=== PATIENT | male | born 1965 | race Caucasian/White ===

== ENCOUNTER → 2017-02-03 | Outpatient (CLI) | payer MEDICAID ==
--- NOTE | 2017-02-03 18:26 | RADIOLOGY REPORT (SQ) ---
EXAM DESCRIPTION: U/S NON-OB PELVIS LTD W/O DOP COMPLETED DATE/TIME: 02/03/2017 5:56 pm REASON FOR STUDY: Personal history of other diseases of the digestive system Z87.19 PERSONAL HISTOR Y OF OTHER DISEASES OF THE DIGESTIVE S COMPARISON: None. TECHNIQUE: Dynamic and static grayscale images acquired of the pelvis via transabdominal approach an d recorded on PACS. Additional selected color Doppler and spectral images recorded. LIMITATIONS: None. FINDINGS: Sonographic imaging of the area of concern suggests an inguinal hernia on the left. 0 1 c m right inguinal node is present. IMPRESSION: There appears to be a left inguinal hernia. TECHNICAL DOCUMENTATION: JOB ID: [id number] [employer]- All Rights Reserved
== END ==
LOC: RAD 17:10
PROVIDERS: ATTEND Family Medicine
DX: K44.9 Diaphragmatic hernia without obstruction or gangrene (principal); Z87.19 Personal history of other diseases of the digestive system
CPT/HCPCS: 76857

== ENCOUNTER 2017-03-12 08:19 | Inpatient (IN) | payer MEDICAID ==
[2017-03-12] MEDS ORDERED: NORMAL SALINE 1000 ML 1,000 ML IV ONE ×3 (08:50→20:00)
--- NOTE | 2017-03-12 08:55 | ER Document Report ---
ED Flu Like - General Chief Complaint: Flu Symptoms Stated Complaint: FLU LIKE SYMPTOMS Time Seen by Provider: 03/12/17 08:49 Mode of Arrival: Ambulatory Information source: Patient, Relative TRAVEL OUTSIDE OF THE [place] IN LAST 30 DAYS: No - HPI Patient complains to provider of: fever, decreased po intake, sob, cough Onset: Other - pt. with 1 week h/o productive cough, generalized arthralgias and myalgias, and decreased po intake. Had a brief episode of CP and has had SOB intemittently during the week - Related Data Allergies/Adverse Reactions: No Known Allergies Allergy (Unverified 03/01/17 13:21) Past Medical History - General Information source: Patient, Relative - Social History Smoking Status: Current Every Day Smoker Cigarette use (# per day): Yes Chew tobacco use (# tins/day): No Smoking Education Provided: Yes Family History: None - Past Medical History Cardiac Medical History: Denies: Hx Coronary Artery Disease, Hx Heart Attack, Hx Hypertension Pulmonary Medical History: Denies: Hx Asthma, Hx Bronchitis, Hx COPD, Hx Pneumonia Neurological Medical History: Denies: Hx Cerebrovascular Accident, Hx Seizures Musculoskeltal Medical History: Reports Hx Arthritis - KNEE L - Immunizations Hx Diphtheria, Pertussis, Tetanus Vaccination: Yes Review of Systems - Review of Systems Constitutional: See HPI, Chills, Fever EENT: No symptoms reported Cardiovascular: See HPI, Chest pain Respiratory: See HPI, Cough, Short of breath Gastrointestinal: No symptoms reported Genitourinary: No symptoms reported Musculoskeletal: Joint pain, Muscle pain -: Yes All other systems reviewed and negative Physical Exam - Vital signs Vitals: Temp Pulse Resp BP Pulse Ox 100.0 F 133 H 20 121/72 90 L 03/12/17 08:31 03/12/17 08:31 03/12/17 08:31 03/12/17 08:31 03/12/17 08:31 - General General appearance: Other - ill appearing In distress: Mild - HEENT Head: Normocephalic Ears: Normal Mouth/Lips: Normal Mucous membranes: Dry Pharynx: Normal Neck: Normal - Respiratory Respiratory status: No respiratory distress Chest status: Nontender Breath sounds: Rhonchi Chest palpation: Normal - Cardiovascular Rhythm: Tachycardia Heart sounds: Normal auscultation - Abdominal Inspection: Normal Tenderness: Nontender - Extremities General upper extremity: Normal inspection General lower extremity: Normal inspection Course - Re-evaluation Re-evalutation: 03/12/17 10:38 pt. feels somewhat better on bipap -- 02 sats now 94% -- will call hospitalist for admission - Vital Signs Vital signs: Temp Pulse Resp BP Pulse Ox 100.0 F 133 H 27 H 135/74 H 90 L 03/12/17 08:31 03/12/17 08:31 03/12/17 10:00 03/12/17 09:01 03/12/17 10:00 - Laboratory Result Diagrams: 03/12/17 08:00 03/12/17 08:00 Laboratory results interpreted by me: 03/12/17 03/12/17 08:00 08:00 Sodium 122.7 L Chloride 87 L BUN 44 H Creatinine 1.51 H Est GFR (Non-Af Amer) 49 L Glucose 145 H Lactic Acid 2.4 H Direct Bilirubin 0.5 H AST 185 H Alkaline Phosphatase 136 H - Diagnostic Test Radiology reviewed: Reports reviewed - bilateral opacities - Consults aleta cornell Time consulted: 10:39 - he will admit pt. Consulted provider: will come to ER Critical Care Note - Critical Care Note Total time excluding time spent on procedures (mins): 30 Discharge - Discharge Clinical Impression: Pneumonia Qualifiers: Pneumonia type: due to unspecified organism Laterality: bilateral Lung location : unspecified part of lung Qualified Code(s): J18.9 - Pneumonia, unspecified organism Sepsis Qualifiers: Sepsis type: sepsis due to unspecified organism Qualified Code(s): A41.9 - Sepsis, unspecified organism Condition: Fair Disposition: ADMITTED OBSERVATION Admitting Provider: Hospitalist Unit Admitted: Medical Floor Referrals: CHRISTIANA DALEY MD [Primary Care Provider] - Follow up as needed
[2017-03-12] MEDS ORDERED: LORAZEPAM INJ 2 MG/1 ML VIAL IV ONE ×2 (09:18→16:59)
[2017-03-12 09:26] LABS: INTERNATIONAL RATION (INR) 0.92
[2017-03-12 09:35] LABS: ALANINE AMINOTRANSFERASE 53 U/L (21-72); ALBUMIN 3.8 g/dL (3.5-5.0); ALKALINE PHOSPHATASE 136 U/L (38-126); ANION GAP 14 (5-19); ASPARTATE AMINO TRANSFERASE 185 U/L (17-59); BILIRUBIN,DIRECT 0.5 mg/dL (0.0-0.4); BILIRUBIN,TOTAL 0.5 mg/dL (0.2-1.3); BLOOD UREA NITROGEN 44 mg/dL (7-20); CALCIUM 8.5 mg/dL (8.4-10.2); CARBON DIOXIDE 22 mmol/L (22-30); CHLORIDE 87 mmol/L (98-107); GLUCOSE 145 mg/dL (75-110); POTASSIUM 3.7 mmol/L (3.6-5.0); SODIUM 122.7 mmol/L (137-145); TOTAL PROTEIN 6.7 g/dL (6.3-8.2)
[2017-03-12 09:36] LABS: A TYPE INFLUENZA AG NEGATIVE (NEGATIVE); B INFLUENZA AG NEGATIVE (NEGATIVE)
--- NOTE | 2017-03-12 09:37 | RADIOLOGY REPORT (SQ) ---
EXAM DESCRIPTION: CHEST SINGLE VIEW COMPLETED DATE/TIME: 03/12/2017 9:16 am REASON FOR STUDY: shortness of breath, hypoxia. Fever, productive cough. COMPARISON: None. EXAM PARAMETERS: NUMBER OF VIEWS: One view. TECHNIQUE: Single frontal radiographic view of the chest acquired. RADIATION DOSE: NA LIMITATIONS: None. FINDINGS: LUNGS AND PLEURA: There are bilateral patchy airspace opacities, right more than left. No sizable pleural effusion or pneumothorax. MEDIASTINUM AND HILAR STRUCTURES: No masses. Contour normal. HEART AND VASCULAR STRUCTURES: Heart normal in size. No overt vascular congestion. BONES: No acute findings. HARDWARE: None in the chest. IMPRESSION: Bilateral patchy airspace opacities, may represent multifocal pneumonia. Radiographic f ollowup recommended to ensure resolution and exclude a different etiology. TECHNICAL DOCUMENTATION: JOB ID: [id number] [id number] 2010 [employer]- All Rights Reserved
[2017-03-12] MEDS ORDERED: CEFTRIAXONE 1 GM/D5W RTU 1 GM/50 ML RTUPB IV ONE (09:43)
[2017-03-12] MEDS ORDERED: AZITHROMYCIN INJ 500 MG VIAL IV ONE (09:44)
[2017-03-12 10:04] LABS: HEMATOCRIT 44.9 % (37.9-51.0); HEMOGLOBIN 15.6 g/dL (13.5-17.0); MEAN CORPUSCULAR HEMOGLOBIN 30.3 pg (27.0-33.4); MEAN CORPUSCULAR HGB CONC 34.8 g/dL (32.0-36.0); MEAN CORPUSCULAR VOLUME 87 fl (80-97); RED BLOOD COUNT 5.17 10^6/uL (4.35-5.55); RED CELL DISTRIBUTION WIDTH 14.1 % (11.5-14.0); WHITE BLOOD COUNT 5.8 10^3/uL (4.0-10.5)
[2017-03-12 10:09] LABS: VENOUS BLOOD BASE EXCESS -1.4 mmol/L; VENOUS BLOOD HCO3 24.6 mmol/L (20-32); VENOUS BLOOD PCO2 45.9 mmHg (35-63); VENOUS BLOOD PH 7.35 (7.30-7.42)
[2017-03-12 10:35] LABS: PLATELET COUNT 98 10^3/uL (150-450)
[2017-03-12 10:38] LABS: ABSOLUTE LYMPHOCYTES# (MANUAL) 0.2 10^3/uL (0.5-4.7); ABSOLUTE MONOCYTES # (MANUAL) 0.1 10^3/uL (0.1-1.4); ABSOLUTE NEUTROPHILS# (MANUAL) 5.5 10^3/uL (1.7-8.2); BAND NEUTROPHILS % (MANUAL) 3 % (3-5); BASOPHILS % (MANUAL) 0 % (0-2); EOSINOPHILS % (MANUAL) 0 % (0-6); HYPOCHROMASIA SLIGHT; LYMPHOCYTES % (MANUAL) 4 % (13-45); MONOCYTES % (MANUAL) 2 % (3-13); PLATELET COMMENT DECREASED; POLYCHROMASIA SLIGHT; SEGMENTED NEUTROPHILS % (MAN) 91 % (42-78); TOTAL CELLS COUNTED 100; TOXIC GRANULATION 1+; TOXIC VACUOLATION PRESENT
[2017-03-12] MEDS ORDERED: CEFTRIAXONE SODIUM 1,000 MG in NORMAL SALINE 50 ML IV ONE (11:30)
[2017-03-12] MEDS ORDERED: DIAZEPAM INJ 10 MG/2 ML DISP.SYRIN IV ONE (11:49)
[2017-03-12] MEDS ORDERED: IPRATROPIUM/ALBUTEROL 0.5-2.5 MG/3 ML AMPUL NEB PRN (11:51)
[2017-03-12] MEDS ORDERED: OXYCODONE-ACETAMINOPHEN 5-325 MG TABLET PO PRN (11:51)
[2017-03-12] MEDS ORDERED: ACETAMINOPHEN 325 MG TABLET PO PRN (11:51)
[2017-03-12] MEDS ORDERED: NORMAL SALINE 1000 ML 1,000 ML IV PRN (11:51)
[2017-03-12] MEDS ORDERED: ONDANSETRON 4 MG TAB.RAPDIS PO PRN (11:51)
--- NOTE | 2017-03-12 12:06 | PDOC H&P ---
History of Present Illness Admission Date/PCP: 03/12/17 10:46 CHRISTIANA DALEY MD Patient complains of: Fever, pneumonia, Hyponatremia History of Present Illness: MICHAEL OVIEDO II is a 51 year old male presents with complaint of shortness of breath for 1 week. States he has not eaten for 6 days. Patient states he has been vomiting multiple times and having diarrhea multiple times. reports that patient child was sick with similar symptoms but has improved. Patient also states he has been having cold chills and feeling warm at times. Patient states that he has had chest discomfort during this episode. Patient states that cough is nonproductive. ER reported the patient was tachycardic and hypoxic at time of admission however once BiPAP was put in place patient's breathing did improve. Past Medical History Cardiac Medical History: Denies: Coronary Artery Disease, Myocardial Infarction, Hypertension Pulmonary Medical History: Denies: Asthma, Bronchitis, Chronic Obstructive Pulmonary Disease (COPD), Pneumonia Neurological Medical History: Denies: Seizures Musculoskeltal Medical History: Reports: Arthritis - KNEE L Hematology: Denies: Anemia Past Surgical History Past Surgical History: Reports: None Social History Information Source: Patient, Relative Lives with: Family Smoking Status: Current Every Day Smoker Frequency of Alcohol Use: Occasional Hx Recreational Drug Use: No Hx Prescription Drug Abuse: No - Advance Directive Resuscitation Status: Full Code Family History Family History: None Parental Family History Reviewed: No Children Family History Reviewed: No Sibling(s) Family History Reviewed.: No Medication/Allergy Home Medications: Ibuprofen 200 mg PO PRN PRN 03/01/17 Naproxen 250 mg PO PRN PRN 03/01/17 Testosterone Cypionate [Depo-Testosterone] 100 mg IM ASDIR PRN 03/01/17 Allergies/Adverse Reactions: No Known Allergies Allergy (Unverified 03/01/17 13:21) Review of Systems Constitutional: PRESENT: chills, fatigue, fever(s), weakness Eyes: ABSENT: visual disturbances Ears: ABSENT: hearing changes Cardiovascular: PRESENT: chest pain, dyspnea on exertion. ABSENT: edema, orthropnea, palpitations Respiratory: PRESENT: cough, dyspnea Gastrointestinal: ABSENT: abdominal pain, constipation, diarrhea, hematemesis, hematochezia, nausea, vomiting Genitourinary: ABSENT: dysuria, hematuria Musculoskeletal: ABSENT: joint swelling Integumentary: ABSENT: rash, wounds Neurological: PRESENT: confusion. ABSENT: abnormal gait, abnormal speech, dizziness, focal weakness, syncope Psychiatric: ABSENT: anxiety, depression, homidical ideation, suicidal ideation Endocrine: ABSENT: cold intolerance, heat intolerance, polydipsia, polyuria Hematologic/Lymphatic: ABSENT: easy bleeding, easy bruising Physical Exam Vital Signs: Temp Pulse Resp BP Pulse Ox 100.0 F 133 H 27 H 135/74 H 90 L 03/12/17 08:31 03/12/17 08:31 03/12/17 10:00 03/12/17 09:01 03/12/17 10:00 General appearance: PRESENT: mild distress, well-developed, well-nourished, other - BiPAP in place Head exam: PRESENT: atraumatic, normocephalic Eye exam: PRESENT: conjunctiva pink, EOMI. ABSENT: scleral icterus Ear exam: PRESENT: normal external ear exam Mouth exam: PRESENT: moist, tongue midline Neck exam: ABSENT: carotid bruit, JVD, lymphadenopathy, thyromegaly Respiratory exam: PRESENT: other - Diminished breath sounds heard in all lung samson, no wheezing appreciated, accessory muscle use Cardiovascular exam: PRESENT: tachycardia Pulses: PRESENT: normal dorsalis pedis pul Vascular exam: PRESENT: normal capillary refill GI/Abdominal exam: PRESENT: normal bowel sounds, soft. ABSENT: distended, guarding, mass, organolmegaly, rebound, tenderness Rectal exam: PRESENT: deferred Extremities exam: PRESENT: full ROM. ABSENT: calf tenderness, clubbing, pedal edema Musculoskeletal exam: PRESENT: full ROM Neurological exam: PRESENT: alert, awake, oriented to person, oriented to place , oriented to time, oriented to situation, CN II-XII grossly intact. ABSENT: motor sensory deficit Psychiatric exam: PRESENT: anxious Skin exam: PRESENT: dry, intact, warm. ABSENT: cyanosis, rash Results Impressions: Chest X-Ray 03/12/17 08:43 IMPRESSION: Bilateral patchy airspace opacities, may represent multifocal pneumonia. Radiographic followup recommended to ensure resolution and exclude a different etiology. Assessment & Plan - Diagnosis (1) Acute and chronic respiratory failure with hypoxia Is this a current diagnosis for this admission?: Yes Plan: Secondary to bilateral pneumonia: Flu negative. Will place patient on Zosyn. Will order sputum culture. Will check CT of chest to evaluate for PE patient is on testosterone replacement. (2) Sepsis Qualifiers: Sepsis type: sepsis due to unspecified organism Qualified Code(s): A41.9 - Sepsis, unspecified organism Is this a current diagnosis for this admission?: Yes Plan: In setting of bilateral pneumonia presumed community-acquired pneumonia gram- negative: We will place patient on Zosyn. Will check CT of chest to evaluate for PE (3) Pneumonia Qualifiers: Pneumonia type: due to unspecified organism Laterality: bilateral Lung location: unspecified part of lung Qualified Code(s): J18.9 - Pneumonia, unspecified organism Is this a current diagnosis for this admission?: Yes Plan: Presumed community-acquired pneumonia gram-negative organism: We will place patient on Zosyn. Will check CT of chest to evaluate for PE. Have ordered sputum culture. (4) Concern for PE Is this a current diagnosis for this admission?: Yes Plan: Pt is on testosterone replacement which increases his risk for PE. Will place order for CT of chest for PE evaluation (5) Dehydration Is this a current diagnosis for this admission?: Yes Plan: Pt has been given 2 L of normal saline boluses. We will continue IV fluids (6) Acute renal injury due to hypovolemia Is this a current diagnosis for this admission?: Yes Plan: In setting of normal renal function: We will continue with IV fluids for volume expansion. (7) Elevated lactic acid level Is this a current diagnosis for this admission?: Yes Plan: We will repeat lactic acid (8) Elevated LFTs Is this a current diagnosis for this admission?: Yes Plan: We will continue to monitor liver enzymes. Will check CMP. Patient's elevated LFTs could be secondary to testosterone. (9) Testosterone deficiency in male Is this a current diagnosis for this admission?: Yes Plan: We will not continue with patient's testosterone while in hospital. Concerned that patient could potentially have a PE due to testosterone replacement (10) Nausea & vomiting Is this a current diagnosis for this admission?: Yes Plan: We will write for Jony (11) Diarrhea Is this a current diagnosis for this admission?: Yes Plan: Will order C. difficile and stool culture (12) Chest pain Is this a current diagnosis for this admission?: Yes Plan: We will check troponins every 6 hours and order for 2D echo. (13) DVT prophylaxis Is this a current diagnosis for this admission?: Yes Plan: SCDs - Time Time Spent: 30 to 50 Minutes - Place patient in IMCU
[2017-03-12 12:11] LABS: APPEARANCE,URINE CLOUDY; BILIRUBIN,URINE NEGATIVE (NEGATIVE); COLOR,URINE YELLOW; GLUCOSE, URINE NEGATIVE (NEGATIVE); KETONES,URINE NEGATIVE (NEGATIVE); LEUKOCYTE ESTERASE,URINE NEGATIVE (NEGATIVE); NITRITE,URINE NEGATIVE (NEGATIVE); PROTEIN,URINE 100 mg/dL (NEGATIVE); URINE SPECIFIC GRAVITY 1.016; UROBILINOGEN,URINE NEGATIVE mg/dL (<2.0)
--- NOTE | 2017-03-12 13:34 | RADIOLOGY REPORT (SQ) ---
EXAM DESCRIPTION: CTA CHEST COMPLETED DATE/TIME: 03/12/2017 1:07 pm REASON FOR STUDY: concern for PE . Shortness of breath, hypoxia, fever, productive cough. COMPARISON: Chest x-ray 03/12/2017. TECHNIQUE: CT scan of the chest performed using helical scanning technique with dynamic intravenous contrast injection. Images reviewed with lung, soft tissue and bone windows. Reconstructed coronal and sagittal MPR images reviewed. Additional 3 dimensional post-processing performed to develop Maximal Intensity Projection images (WA P). All images stored on PACS. All CT scanners at this facility use dose modulation, iterative reconstruction, and/or weight based d osing when appropriate to reduce radiation dose to as low as reasonably achievable (ALARA). [facility]: Dose Right [facility]: CareDose [facility]: Dose Right [facility]: Teradose 4D [facility]: PlotWatt CONTRAST TYPE AND DOSE: contrast/concentration: Isovue 300.00 mg/ml; Total Contrast Delivered: 95.0 ml; Total Saline Delivered: 80.0 ml Contrast bolus optimized for the pulmonary arteries. Not diagnostic for the aorta. RENAL FUNCTION: Creatinine 1.51. RADIATION DOSE: CT Rad equipment meets quality standard of care and radiation dose reduction techniq ues were employed. CTDIvol: 13.2 - 27.1 mGy. DLP: 1191 mGy-cm. . LIMITATIONS: Extensive motion artifact. FINDINGS: LUNGS AND PLEURA: Emphysematous changes are seen at the lung apices. There are extensive bilateral diffuse ground-glass opacities, more confluent in the lower lobes. Trace right pleural eff usion. No pneumothorax. AORTA AND GREAT VESSELS: No thoracic aortic aneurysm. Contrast bolus not optimized for the aorta. HEART: No pericardial effusion. No significant coronary artery calcifications. PULMONARY ARTERIES: No pulmonary emboli within the main pulmonary arteries. The evaluation for filli ng defects within the segmental and subsegmental branches is suboptimal due to extensive motion artif act. HILAR AND MEDIASTINAL STRUCTURES: Right hilar lymph node measuring 1.8 cm. Left hilar lymph node palmira suring 1.6 cm. Subcarinal lymph node measuring 2.1 cm. HARDWARE: None in the chest. UPPER ABDOMEN: No significant findings. Limited exam. BONES: Degenerative changes in the spine. 3D MIPS: Confirm above findings. IMPRESSION: 1. Study degraded by extensive motion artifact. No pulmonary emboli within the main pu lmonary arteries. The segmental and subsegmental pulmonary arteries are not well evaluated on this e xam. 2. Extensive diffuse bilateral ground-glass opacities, more confluent in the lower lobes, may represe nt multifocal pneumonia and/or pulmonary edema. Trace right pleural effusion. 3. Mediastinal and hilar adenopathy, may be reactive. Followup CT thorax in 3 months can be obtained to re-evaluate. COMMENT: Quality ID # [id number]: Final reports with documentation of one or more dose reduction techniques (e.g., Automated exposure control, adjustment of the mA and/or kV according to patient size, use of iterative reconstruction technique) TECHNICAL DOCUMENTATION: JOB ID: [id number] [place]-[id number] 2010 [employer]- All Rights Reserved
[2017-03-12 13:43] LABS: ARTERIAL BLOOD BASE EXCESS -2.6 mmol/L; ARTERIAL BLOOD H2CO3 1.07 mmol/L (1.05-1.35); ARTERIAL BLOOD HCO3 21.5 mmol/L (20-26); ARTERIAL BLOOD O2 SATURATION 92.7 % (94-98); ARTERIAL BLOOD PCO2 35.4 mmHg (35-45); ARTERIAL BLOOD PO2 64.2 mmHg (80-100); ARTERIAL BLOOD TOTAL CO2 22.6 mmol/L (23-27)
[2017-03-12 13:44] LABS: ARTERIAL BLOOD FIO2 80
[2017-03-12] MEDS ORDERED: ROCURONIUM BROMIDE INJ 50 MG/5 ML VIAL IV ONE ×2 (14:39→18:39)
[2017-03-12] MEDS ORDERED: MIDAZOLAM 2 MG/2 ML INJ ONE ×2 (18:15→18:29)
[2017-03-12] MEDS ORDERED: PROPOFOL 100 ML IV ONE (18:19)
[2017-03-12] MEDS ORDERED: MIDAZOLAM 2 MG/2 ML INJ IV ONE ×2 (18:29)
[2017-03-12 18:33] LABS: ARTERIAL BLOOD BASE EXCESS -2.1 mmol/L; ARTERIAL BLOOD H2CO3 1.15 mmol/L (1.05-1.35); ARTERIAL BLOOD HCO3 22.5 mmol/L (20-26); ARTERIAL BLOOD O2 SATURATION 76.9 % (94-98); ARTERIAL BLOOD PCO2 38.3 mmHg (35-45); ARTERIAL BLOOD PH 7.39 (7.35-7.45); ARTERIAL BLOOD PO2 41.7 mmHg (80-100); ARTERIAL BLOOD TOTAL CO2 23.7 mmol/L (23-27)
[2017-03-12] MEDS: PROPOFOL 100 ML IV PRN ×3 (18:35→23:20)
[2017-03-12] MEDS ORDERED: ACETAMINOPHEN 650 MG SUPP.RECT PR ONE ×2 (18:49→20:03)
--- NOTE | 2017-03-12 19:23 | RADIOLOGY REPORT (SQ) ---
EXAM DESCRIPTION: CHEST SINGLE VIEW COMPLETED DATE/TIME: 03/12/2017 7:14 pm REASON FOR STUDY: ET tube and NG tube placement verification COMPARISON: 03/12/2017 CTA of the chest. EXAM PARAMETERS: NUMBER OF VIEWS: One view. TECHNIQUE: Single frontal radiographic view of the chest acquired. RADIATION DOSE: NA LIMITATIONS: None. FINDINGS: LUNGS AND PLEURA: Stable pulmonary exam, again demonstrating bilateral airspace opacities. No pneumothorax. No pleural effusion. MEDIASTINUM AND HILAR STRUCTURES: Stable. HEART AND VASCULAR STRUCTURES: Stable. BONES: No acute findings. HARDWARE: Interval placement of an endotracheal tube which terminates approximately 5.8 cm cranial to the edvin, at the level of the clavicular heads. An enteric tube is seen along the expected course of the esophagus, terminating inferiorly out of the field of view. OTHER: No other significant finding. IMPRESSION: 1. Stable pulmonary exam. 2. Interval placement of endotracheal and enteric tubes without evidence of complication. TECHNICAL DOCUMENTATION: JOB ID: [id number] [employer]- All Rights Reserved
[2017-03-12] MEDS ORDERED: NOREPINEPHRINE BITARTRATE INJ/PF 4 MG/4 ML SDV IV ONE (19:41)
[2017-03-12] MEDS ORDERED: MIDAZOLAM HCL 50 MG/100 ML RTUINJ IV ONE (19:41)
[2017-03-12] MEDS ORDERED: VECURONIUM BROMIDE INJ 10 MG VIAL IV ONE ×2 (19:49→20:04)
--- NOTE | 2017-03-12 20:00 | ER Document Report ---
Doctor's Note Notes: 03/12/17 19:57 I walked into this patient's room as when I walked past and noticed that on the ventilator he was saturating 75%, obviously breathing rapidly over the ventilator, stacking breaths. On review of this patient's history it appears that he has developed ARDS in the setting of a likely influenza versus underlying pneumonia. He was intubated by the hospitalist but the inpatient services are not available or are unable to be at the bedside at this time. Although I have not been directly involved in this patient's care, due to the obvious deterioration of this patient I felt obligated to intervene in this patient's management. I have adjusted the patient's ventilator to a PEEP of 18 , decreased the tidal volume from 680-400, and increase the respiratory rate from 20-30 to follow an ARDS protocol. I have also paralyzed the patient with 20 mg of vecuronium. With these interventions, patient's saturations have increased from 75% on 100% FiO2 now currently at 90% on 100% FiO2. I instructed the respiratory therapist to continue this protocol. Patient is currently being sedated with propofol and Versed. Maintaining a map of 65.
[2017-03-12] MEDS: PIPERACILLIN SODIUM/TAZOBACTAM 3.375 GM in NORMAL SALINE 100 ML IV SCH (21:08)
[2017-03-12 23:36] LABS: ARTERIAL BLOOD BASE EXCESS -7.5 mmol/L; ARTERIAL BLOOD FIO2 100%; ARTERIAL BLOOD H2CO3 2.79 mmol/L (1.05-1.35); ARTERIAL BLOOD HCO3 25.3 mmol/L (20-26); ARTERIAL BLOOD O2 SATURATION 93.3 % (94-98); ARTERIAL BLOOD PO2 95.5 mmHg (80-100); ARTERIAL BLOOD TOTAL CO2 28.2 mmol/L (23-27)
[2017-03-12 23:38] LABS: ARTERIAL BLOOD PCO2 92.7 mmHg (35-45); ARTERIAL BLOOD PH 7.05 (7.35-7.45)
[2017-03-13 00:56] LABS: ARTERIAL BLOOD BASE EXCESS -6.2 mmol/L; ARTERIAL BLOOD H2CO3 1.86 mmol/L (1.05-1.35); ARTERIAL BLOOD O2 SATURATION 88.8 % (94-98); ARTERIAL BLOOD PCO2 61.8 mmHg (35-45); ARTERIAL BLOOD PO2 68.4 mmHg (80-100); ARTERIAL BLOOD TOTAL CO2 24.9 mmol/L (23-27)
[2017-03-13 00:58] LABS: ARTERIAL BLOOD FIO2 100%; ARTERIAL BLOOD PH 7.19 (7.35-7.45)
[2017-03-13] MEDS ORDERED: MIDAZOLAM HCL 50 MG/100 ML RTUINJ IV ONE (01:23)
[2017-03-13] MEDS: PROPOFOL 100 ML IV PRN ×7 (02:40→21:24)
[2017-03-13 03:05] LABS: ANION GAP 10 (5-19); BLOOD UREA NITROGEN 37 mg/dL (7-20); CALCIUM 7.5 mg/dL (8.4-10.2); CARBON DIOXIDE 22 mmol/L (22-30); CHLORIDE 96 mmol/L (98-107); GLUCOSE 130 mg/dL (75-110); SODIUM 127.5 mmol/L (137-145)
[2017-03-13 04:06] LABS: ABSOLUTE BASOPHILS # (AUTO) 0.1 10^3/uL (0.0-0.2); ABSOLUTE LYMPHOCYTES (AUTO) 0.8 10^3/uL (0.5-4.7); ABSOLUTE MONOCYTES (AUTO) 0.3 10^3/uL (0.1-1.4); ABSOLUTE NEUT (AUTO) 6.5 10^3/uL (1.7-8.2); BASOPHILS % (AUTO) 0.8 % (0-2); EOSINOPHILS % (AUTO) 0.1 % (0-6); HEMATOCRIT 41.5 % (37.9-51.0); HEMOGLOBIN 14.4 g/dL (13.5-17.0); LYMPHOCYTES % (AUTO) 10.1 % (13-45); MEAN CORPUSCULAR HEMOGLOBIN 30.9 pg (27.0-33.4); MEAN CORPUSCULAR HGB CONC 34.6 g/dL (32.0-36.0); MEAN CORPUSCULAR VOLUME 89 fl (80-97); MONOCYTES % (AUTO) 3.3 % (3-13); RED BLOOD COUNT 4.65 10^6/uL (4.35-5.55); RED CELL DISTRIBUTION WIDTH 14.8 % (11.5-14.0); SEGMENTED NEUTROPHILS % (AUTO) 85.7 % (42-78); TOTAL CELLS COUNTED % (AUTO) 100 %; WHITE BLOOD COUNT 7.6 10^3/uL (4.0-10.5)
[2017-03-13 04:09] LABS: PLATELET COUNT 93 10^3/uL (150-450)
[2017-03-13 04:29] LABS: ALANINE AMINOTRANSFERASE 50 U/L (21-72); ALBUMIN 2.9 g/dL (3.5-5.0); ALKALINE PHOSPHATASE 117 U/L (38-126); ANION GAP 8 (5-19); ASPARTATE AMINO TRANSFERASE 188 U/L (17-59); BILIRUBIN,DIRECT 0.8 mg/dL (0.0-0.4); BILIRUBIN,TOTAL 0.9 mg/dL (0.2-1.3); BLOOD UREA NITROGEN 35 mg/dL (7-20); CALCIUM 7.5 mg/dL (8.4-10.2); CARBON DIOXIDE 22 mmol/L (22-30); CHLORIDE 97 mmol/L (98-107); CHOLESTEROL 110.33 mg/dL (0-200); GLUCOSE 108 mg/dL (75-110); POTASSIUM 4.3 mmol/L (3.6-5.0); SODIUM 126.9 mmol/L (137-145); TOTAL PROTEIN 5.3 g/dL (6.3-8.2)
[2017-03-13 04:42] LABS: DIRECT LDL < 30 mg/dL (<100); TRIGLYCERIDES 844 mg/dL (<150)
[2017-03-13 04:44] LABS: FREE T4 (FREE THYROXINE) 1.41 ng/dL (0.78-2.19)
[2017-03-13 04:58] LABS: THYROID STIMULATING HORMONE 0.08 uIU/mL (0.47-4.68)
[2017-03-13] MEDS ORDERED: INFLUENZA ADLT QUAD (36MOS+) 2017-18 VAC 0.5 ML SYR IM PRN (05:33)
[2017-03-13] MEDS ORDERED: NOREPINEPHRINE BITARTRATE INJ/PF 4 MG/4 ML SDV IV ONE (05:52)
[2017-03-13] MEDS: PIPERACILLIN SODIUM/TAZOBACTAM 3.375 GM in NORMAL SALINE 100 ML IV SCH ×3 (05:59→17:38)
[2017-03-13] MEDS ORDERED: LANSOPRAZOLE 30 MG TAB.RAP.DR PO SCH (06:00)
[2017-03-13 06:44] LABS: ARTERIAL BLOOD BASE EXCESS -4.9 mmol/L; ARTERIAL BLOOD H2CO3 1.78 mmol/L (1.05-1.35); ARTERIAL BLOOD HCO3 23.7 mmol/L (20-26); ARTERIAL BLOOD O2 SATURATION 89.2 % (94-98); ARTERIAL BLOOD PH 7.22 (7.35-7.45); ARTERIAL BLOOD PO2 67.3 mmHg (80-100); ARTERIAL BLOOD TOTAL CO2 25.5 mmol/L (23-27)
[2017-03-13 06:45] LABS: ARTERIAL BLOOD FIO2 100%
[2017-03-13] MEDS ORDERED: MIDAZOLAM HCL 50 MG/100 ML RTUINJ IV PRN (07:33)
--- NOTE | 2017-03-13 09:16 | RADIOLOGY REPORT (SQ) ---
EXAM DESCRIPTION: CHEST SINGLE VIEW COMPLETED DATE/TIME: 03/13/2017 9:04 am REASON FOR STUDY: mechanical ventilation COMPARISON: 03/12/2017 NUMBER OF VIEWS: One view. TECHNIQUE: Single frontal radiographic image of the chest acquired. LIMITATIONS: None. FINDINGS: LUNGS AND PLEURA: Diffuse airspace disease with interval development of silhouetting of th e left diaphragm. No pneumothorax. MEDIASTINUM AND HEART: Stable heart size and mediastinal structures. SUPPORT DEVICES: Appropriate location without change. BONY STRUCTURES: No acute findings. HARDWARE: None. OTHER: No other significant finding. IMPRESSION: Rehydration versus progressing pneumonia. No pneumothorax.
[2017-03-13] MEDS: PANTOPRAZOLE SODIUM 40 MG VIAL IV SCH ×2 (10:28→23:06)
[2017-03-13] MEDS ORDERED: NORMAL SALINE 1000 ML 1,000 ML IV PRN (11:08)
--- NOTE | 2017-03-13 11:16 | PDOC PROGRESS REPORT ---
Subjective Progress Note for:: 03/13/17 Subjective:: Yesterday evening patient continued to deteriorate. Therefore patient was intubated and emergency room department. Patient's intubation was difficult due to patient having erythema associated around vocal cords. this morning reports that patient has been sick for approximately 6 days and that multiple family members have been sick at home. 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 Explained to patient the findings that we have on CT and our current treatment plan. Nursing reported that patient still is satting in the upper 80s to lower 90s and the patient has been febrile. Reason For Visit: PNEUMONIA SEPSIS Physical Exam Vital Signs: Temp Pulse Resp BP Pulse Ox 102.9 F H 99 26 H 103/66 93 03/12/17 21:23 03/13/17 08:00 03/13/17 07:32 03/13/17 07:32 03/13/17 08:00 Intake & Output 03/12/17 03/13/17 03/14/17 06:59 06:59 06:59 Output Total 850 125 Balance -850 -125 Weight 112.5 kg General appearance: PRESENT: other - Sedated, ET tube in place. Head exam: PRESENT: atraumatic, normocephalic Eye exam: PRESENT: other - sedated and eyes closed.. ABSENT: scleral icterus Ear exam: PRESENT: normal external ear exam Mouth exam: PRESENT: moist, tongue midline, other - ET tube in place Neck exam: ABSENT: carotid bruit, JVD, lymphadenopathy, thyromegaly Respiratory exam: PRESENT: crackles, decreased breath sounds. ABSENT: accessory muscle use, chest wall tenderness, clear to auscultation juan josé, prolonged expiratory phas, rales, retraction, rhonchi, stridor, symmetrical, tachypnea, unlabored, wheezes, other Cardiovascular exam: PRESENT: RRR. ABSENT: diastolic murmur, rubs, systolic murmur Pulses: PRESENT: normal dorsalis pedis pul Vascular exam: PRESENT: normal capillary refill GI/Abdominal exam: PRESENT: normal bowel sounds, soft. ABSENT: distended, guarding, mass, organolmegaly, rebound, tenderness Rectal exam: PRESENT: deferred Extremities exam: ABSENT: calf tenderness, clubbing, pedal edema Neurological exam: PRESENT: other - sedated Skin exam: PRESENT: dry, warm Results Laboratory Results: 03/13/17 03:50 03/13/17 03:50 03/12/17 03/12/17 03/12/17 11:43 13:15 13:34 WBC RBC Hgb Hct MCV MCH MCHC RDW Plt Count Seg Neutrophils % Lymphocytes % Monocytes % Eosinophils % Basophils % Absolute Neutrophils Absolute Lymphocytes Absolute Monocytes Absolute Eosinophils Absolute Basophils Carbonic Acid 1.07 HCO3/H2CO3 Ratio 20:1 ABG pH 7.40 ABG pCO2 35.4 ABG pO2 64.2 L ABG HCO3 21.5 ABG O2 Saturation 92.7 L ABG Base Excess -2.6 FiO2 80 Sodium Potassium Chloride Carbon Dioxide Anion Gap BUN Creatinine Est GFR ( Amer) Est GFR (Non-Af Amer) Glucose Lactic Acid 1.1 Calcium Total Bilirubin AST ALT Alkaline Phosphatase Total Protein Albumin Triglycerides Cholesterol LDL Cholesterol Direct VLDL Cholesterol HDL Cholesterol TSH Free T4 Urine Color YELLOW Urine Appearance CLOUDY Urine pH 5.0 Ur Specific [place] 1.016 Urine Protein 100 H Urine Glucose (UA) NEGATIVE Urine Ketones NEGATIVE Urine Blood LARGE H Urine Nitrite NEGATIVE Ur Leukocyte Esterase NEGATIVE Urine WBC (Auto) 6 Urine RBC (Auto) 1 03/12/17 03/12/17 03/12/17 16:04 18:06 19:21 WBC RBC Hgb Hct MCV MCH MCHC RDW Plt Count Seg Neutrophils % Lymphocytes % Monocytes % Eosinophils % Basophils % Absolute Neutrophils Absolute Lymphocytes Absolute Monocytes Absolute Eosinophils Absolute Basophils Carbonic Acid 1.15 HCO3/H2CO3 Ratio 19:1 ABG pH 7.39 ABG pCO2 38.3 ABG pO2 41.7 L ABG HCO3 22.5 ABG O2 Saturation 76.9 L ABG Base Excess -2.1 FiO2 88% Sodium Potassium Chloride Carbon Dioxide Anion Gap BUN Creatinine Est GFR ( Amer) Est GFR (Non-Af Amer) Glucose Lactic Acid 1.0 1.0 Calcium Total Bilirubin AST ALT Alkaline Phosphatase Total Protein Albumin Triglycerides Cholesterol LDL Cholesterol Direct VLDL Cholesterol HDL Cholesterol TSH Free T4 Urine Color Urine Appearance Urine pH Ur Specific [place] Urine Protein Urine Glucose (UA) Urine Ketones Urine Blood Urine Nitrite Ur Leukocyte Esterase Urine WBC (Auto) Urine RBC (Auto) 03/12/17 03/13/17 03/13/17 23:02 00:35 00:45 WBC RBC Hgb Hct MCV MCH MCHC RDW Plt Count Seg Neutrophils % Lymphocytes % Monocytes % Eosinophils % Basophils % Absolute Neutrophils Absolute Lymphocytes Absolute Monocytes Absolute Eosinophils Absolute Basophils Carbonic Acid 2.79 H 1.86 H HCO3/H2CO3 Ratio 9:1 12:1 ABG pH 7.05 L* 7.19 L* ABG pCO2 92.7 H* 61.8 H ABG pO2 95.5 68.4 L ABG HCO3 25.3 23.0 ABG O2 Saturation 93.3 L 88.8 L ABG Base Excess -7.5 -6.2 FiO2 100% 100% Sodium Cancelled Potassium Cancelled Chloride Cancelled Carbon Dioxide Cancelled Anion Gap Cancelled BUN Cancelled Creatinine Cancelled Est GFR ( Amer) Cancelled Est GFR (Non-Af Amer) Cancelled Glucose Cancelled Lactic Acid Calcium Cancelled Total Bilirubin AST ALT Alkaline Phosphatase Total Protein Albumin Triglycerides Cholesterol LDL Cholesterol Direct VLDL Cholesterol HDL Cholesterol TSH Free T4 Urine Color Urine Appearance Urine pH Ur Specific [place] Urine Protein Urine Glucose (UA) Urine Ketones Urine Blood Urine Nitrite Ur Leukocyte Esterase Urine WBC (Auto) Urine RBC (Auto) 03/13/17 03/13/17 03/13/17 02:34 03:50 03:50 WBC 7.6 RBC 4.65 Hgb 14.4 Hct 41.5 MCV 89 MCH 30.9 MCHC 34.6 RDW 14.8 H Plt Count 93 L Seg Neutrophils % 85.7 H Lymphocytes % 10.1 L Monocytes % 3.3 Eosinophils % 0.1 Basophils % 0.8 Absolute Neutrophils 6.5 Absolute Lymphocytes 0.8 Absolute Monocytes 0.3 Absolute Eosinophils 0.0 Absolute Basophils 0.1 Carbonic Acid HCO3/H2CO3 Ratio ABG pH ABG pCO2 ABG pO2 ABG HCO3 ABG O2 Saturation ABG Base Excess FiO2 Sodium 127.5 L 126.9 L Potassium 4.0 4.3 Chloride 96 L 97 L Carbon Dioxide 22 22 Anion Gap 10 8 BUN 37 H 35 H Creatinine 1.39 H 1.35 H Est GFR ( Amer) > 60 > 60 Est GFR (Non-Af Amer) 54 L 56 L Glucose 130 H 108 Lactic Acid Calcium 7.5 L 7.5 L Total Bilirubin 0.9 AST 188 H ALT 50 Alkaline Phosphatase 117 Total Protein 5.3 L Albumin 2.9 L Triglycerides 844 H Cholesterol 110.33 LDL Cholesterol Direct < 30 VLDL Cholesterol UNABLE TO CALCULATE HDL Cholesterol 13 L TSH Free T4 Urine Color Urine Appearance Urine pH Ur Specific [place] Urine Protein Urine Glucose (UA) Urine Ketones Urine Blood Urine Nitrite Ur Leukocyte Esterase Urine WBC (Auto) Urine RBC (Auto) 03/13/17 03/13/17 03:50 06:15 WBC RBC Hgb Hct MCV MCH MCHC RDW Plt Count Seg Neutrophils % Lymphocytes % Monocytes % Eosinophils % Basophils % Absolute Neutrophils Absolute Lymphocytes Absolute Monocytes Absolute Eosinophils Absolute Basophils Carbonic Acid 1.78 H HCO3/H2CO3 Ratio 13:1 ABG pH 7.22 L ABG pCO2 59.0 H ABG pO2 67.3 L ABG HCO3 23.7 ABG O2 Saturation 89.2 L ABG Base Excess -4.9 FiO2 100% Sodium Potassium Chloride Carbon Dioxide Anion Gap BUN Creatinine Est GFR ( Amer) Est GFR (Non-Af Amer) Glucose Lactic Acid Calcium Total Bilirubin AST ALT Alkaline Phosphatase Total Protein Albumin Triglycerides Cholesterol LDL Cholesterol Direct VLDL Cholesterol HDL Cholesterol TSH 0.08 L Free T4 1.41 Urine Color Urine Appearance Urine pH Ur Specific [place] Urine Protein Urine Glucose (UA) Urine Ketones Urine Blood Urine Nitrite Ur Leukocyte Esterase Urine WBC (Auto) Urine RBC (Auto) 03/13/17 00:50 Sputum Gram Stain - Final 03/13/17 00:50 Sputum Sputum Culture - Final 03/12/17 03/12/17 03/13/17 13:15 19:21 00:35 Troponin I 0.102 0.092 0.094 Impressions: Chest/Abdomen CTA 03/12/17 00:00 IMPRESSION: 1. Study degraded by extensive motion artifact. No pulmonary emboli within the main pulmonary arteries. The segmental and subsegmental pulmonary arteries are not well evaluated on this exam. 2. Extensive diffuse bilateral ground-glass opacities, more confluent in the lower lobes, may represent multifocal pneumonia and/or pulmonary edema. Trace right pleural effusion. 3. Mediastinal and hilar adenopathy, may be reactive. Followup CT thorax in 3 months can be obtained to re-evaluate. Chest X-Ray 03/13/17 00:00 IMPRESSION: Rehydration versus progressing pneumonia. No pneumothorax. Assessment & Plan - Diagnosis (1) Acute and chronic respiratory failure with hypoxia Is this a current diagnosis for this admission?: Yes Plan: Secondary to bilateral pneumonia status post intubation: Flu negative. Will place patient on Zosyn. Will order sputum culture. CT demonstrated no evidence of PE. CT however did demonstrate evidence of groundglass opacities. CT report stated that patient could possibly have pulmonary edema however do not believe that this is consistent with patient's clinical presentation. 2D echo is currently pending. (2) Sepsis Qualifiers: Sepsis type: sepsis due to unspecified organism Qualified Code(s): A41.9 - Sepsis, unspecified organism Is this a current diagnosis for this admission?: Yes Plan: In setting of bilateral pneumonia presumed community-acquired pneumonia gram- negative: We will place patient on Zosyn. Patient has been given 3 L of normal saline. Will increase patient's maintenance fluids to 150 in setting of hypotension. (3) Pneumonia Qualifiers: Pneumonia type: due to unspecified organism Laterality: bilateral Lung location: unspecified part of lung Qualified Code(s): J18.9 - Pneumonia, unspecified organism Is this a current diagnosis for this admission?: Yes Plan: Presumed community-acquired pneumonia gram-negative organism: We will continue Zosyn. Sputum culture pending (4) Concern for PE Is this a current diagnosis for this admission?: Yes Plan: PE ruled out (5) Dehydration Is this a current diagnosis for this admission?: Yes Plan: Patient given additional 1 L normal saline bolus. Will increase patient's maintenance fluids 150 cc/h. (6) Acute renal injury due to hypovolemia Is this a current diagnosis for this admission?: Yes Plan: In setting of normal renal function: We will continue with IV fluids for volume expansion. (7) Elevated lactic acid level Is this a current diagnosis for this admission?: Yes Plan: Patient's lactic acids have normalized. (8) Elevated LFTs Is this a current diagnosis for this admission?: Yes Plan: We will continue to monitor liver enzymes. Patient's AST remains elevated we will continue to monitor.. (9) Testosterone deficiency in male Is this a current diagnosis for this admission?: Yes Plan: We will not continue with patient's testosterone while in hospital. CT a of chest negative for PE (10) Nausea & vomiting Is this a current diagnosis for this admission?: Yes Plan: Zofran (11) Diarrhea Is this a current diagnosis for this admission?: Yes Plan: C. difficile and stool culture pending. (12) Chest pain Is this a current diagnosis for this admission?: Yes Plan: Troponins negative and order for 2D echo pending. (13) Hyponatremia Is this a current diagnosis for this admission?: Yes Plan: Suspect secondary to dehydration and possibly complicated by lung infection: Continue IV fluids and monitor sodium closely. (14) Hypertriglyceridemia Is this a current diagnosis for this admission?: Yes Plan: We will place patient on oral medication once patient's medical condition has improved. (15) DVT prophylaxis Is this a current diagnosis for this admission?: Yes Plan: SCDs - Time Time Spent with patient: 25-34 minutes
--- NOTE | 2017-03-13 11:59 | EKG REPORT ---
SEVERITY:- ABNORMAL ECG - SINUS TACHYCARDIA LEFT ATRIAL ABNORMALITY CONSIDER ANTEROSEPTAL INFARCT BORDERLINE T WAVE ABNORMALITIES : Confirmed by: Patria Espinoza MD 13-Mar-2017 11:59:32
--- NOTE | 2017-03-13 11:59 | EKG REPORT ---
SEVERITY:- ABNORMAL ECG - SINUS TACHYCARDIA PROBABLE LEFT ATRIAL ABNORMALITY CONSIDER ANTEROSEPTAL INFARCT BORDERLINE T WAVE ABNORMALITIES : Confirmed by: Patria Espinoza MD 13-Mar-2017 11:59:28
[2017-03-13] MEDS: NORMAL SALINE 500 ML with ROCURONIUM BROMIDE 500 MG IV PRN ×4 (12:30→17:59)
[2017-03-13] MEDS: IPRATROPIUM/ALBUTEROL 0.5-2.5 MG/3 ML AMPUL NEB SCH ×2 (13:54→20:31)
[2017-03-13] MEDS ORDERED: METHYLPREDNISOLONE INJ 125 MG/2 ML SDV IV SCH (14:00)
[2017-03-13 14:43] LABS: ARTERIAL BLOOD BASE EXCESS -6.8 mmol/L; ARTERIAL BLOOD HCO3 22.2 mmol/L (20-26); ARTERIAL BLOOD O2 SATURATION 96.1 % (94-98); ARTERIAL BLOOD PCO2 59.8 mmHg (35-45); ARTERIAL BLOOD PO2 102.3 mmHg (80-100)
[2017-03-13 14:44] LABS: ARTERIAL BLOOD FIO2 100%
[2017-03-13 14:45] LABS: ARTERIAL BLOOD PH 7.19 (7.35-7.45)
[2017-03-13] MEDS ORDERED: SODIUM BICARBONATE 8.4% INJ 50 MEQ/50 ML DISP.SYRIN ONE (14:55)
[2017-03-13] MEDS ORDERED: SODIUM BICARBONATE 8.4% INJ 50 MEQ/50 ML DISP.SYRIN IV ONE (16:00)
[2017-03-13] MEDS ORDERED: DEXTROSE 5%-WATER 250 ML with NOREPINEPHRINE BITARTRATE 4 MG IV PRN ×2 (16:08)
--- NOTE | 2017-03-13 16:54 | PDOC CONSULTATION ---
Consultation Consult Date: 03/12/17 Attending physician:: SUMAN CHAN Consult reason:: ARDS History of Present Illness Admission Date/PCP: 03/12/17 10:46 CHRISTIANA DALEY MD History of Present Illness: All information from chart as patient currently intubated and sedated no family members at bedside:MICHAEL OVIEDO II is a 51 year old male presents with complaint of shortness of breath for 1 week. Patient states he has been vomiting multiple times and having diarrhea multiple times. reports that patient child was sick with similar symptoms but has improved. Patient also states he has been having cold chills and feeling warm at times. Patient states that he has had chest discomfort during this episode. Patient states that cough is nonproductive. ER reported the patient was tachycardic and hypoxic at time of admission however once BiPAP was put in place patient's breathing did improve.His is from it was only temporary he became increasingly more short of breath and subsequently was intubated at that time he became hypotensive and remained tachycardic and proved to be difficult to ventilate as well as to oxygenate. Past Medical History Cardiac Medical History: Denies: Coronary Artery Disease, Myocardial Infarction, Hypertension Pulmonary Medical History: Denies: Asthma, Bronchitis, Chronic Obstructive Pulmonary Disease (COPD), Pneumonia Neurological Medical History: Denies: Seizures Musculoskeltal Medical History: Reports: Arthritis - KNEE L Hematology: Denies: Anemia Past Surgical History Past Surgical History: Reports: None Social History Information Source: [facility] Records Lives with: Family Smoking Status: Current Every Day Smoker Cigarettes Packs Per Day: 1 Frequency of Alcohol Use: Rare Hx Recreational Drug Use: No Drugs: None Hx Prescription Drug Abuse: No - Advance Directive Resuscitation Status: Full Code Family History Parental Family History Reviewed: No Children Family History Reviewed: No Sibling(s) Family History Reviewed.: No Medication/Allergy Home Medications: Testosterone Cypionate [Depo-Testosterone] 100 mg IM [id number] 03/12/17 Allergies/Adverse Reactions: No Known Allergies Allergy (Unverified 03/01/17 13:21) Review of Systems ROS unobtainable: Due to endotracheal tube Physical Exam Vital Signs: Temp Pulse Resp BP Pulse Ox 102.9 F H 114 H 26 H 103/66 92 03/12/17 21:23 03/12/17 21:23 03/13/17 07:32 03/13/17 07:32 03/13/17 07:32 Intake & Output 03/12/17 03/13/17 03/14/17 06:59 06:59 06:59 Output Total 850 Balance -850 Weight 112.5 kg General appearance: PRESENT: no acute distress, disheveled, mild distress, obese , well-developed. ABSENT: cooperative Head exam: PRESENT: atraumatic, normocephalic Eye exam: PRESENT: conjunctiva pale. ABSENT: EOMI, nystagmus, scleral icterus Mouth exam: PRESENT: dry mucosa, neck supple, tongue midline, other - ET tube in place. ABSENT: laceration, moist Neck exam: ABSENT: carotid bruit, JVD, lymphadenopathy, thyromegaly, tracheal deviation, tracheostomy Respiratory exam: PRESENT: crackles, decreased breath sounds, prolonged expiratory phas, rhonchi, symmetrical, unlabored, wheezes Cardiovascular exam: PRESENT: RRR, +S1, +S2, tachycardia Pulses: PRESENT: normal radial pulses GI/Abdominal exam: PRESENT: diminished bowel sounds, soft Extremities exam: ABSENT: clubbing, joint swelling Musculoskeletal exam: PRESENT: normal inspection. ABSENT: ambulatory, deformity , dislocation, full ROM Neurological exam: PRESENT: oriented to person. ABSENT: alert, awake Skin exam: PRESENT: dry, warm Results Laboratory Results: 03/13/17 03:50 03/13/17 03:50 03/12/17 03/12/17 03/12/17 11:43 13:15 13:34 WBC RBC Hgb Hct MCV MCH MCHC RDW Plt Count Seg Neutrophils % Lymphocytes % Monocytes % Eosinophils % Basophils % Absolute Neutrophils Absolute Lymphocytes Absolute Monocytes Absolute Eosinophils Absolute Basophils Carbonic Acid 1.07 HCO3/H2CO3 Ratio 20:1 ABG pH 7.40 ABG pCO2 35.4 ABG pO2 64.2 L ABG HCO3 21.5 ABG O2 Saturation 92.7 L ABG Base Excess -2.6 FiO2 80 Sodium Potassium Chloride Carbon Dioxide Anion Gap BUN Creatinine Est GFR ( Amer) Est GFR (Non-Af Amer) Glucose Lactic Acid 1.1 Calcium Total Bilirubin AST ALT Alkaline Phosphatase Total Protein Albumin Triglycerides Cholesterol LDL Cholesterol Direct VLDL Cholesterol HDL Cholesterol TSH Free T4 Urine Color YELLOW Urine Appearance CLOUDY Urine pH 5.0 Ur Specific [place] 1.016 Urine Protein 100 H Urine Glucose (UA) NEGATIVE Urine Ketones NEGATIVE Urine Blood LARGE H Urine Nitrite NEGATIVE Ur Leukocyte Esterase NEGATIVE Urine WBC (Auto) 6 Urine RBC (Auto) 1 03/12/17 03/12/17 03/12/17 16:04 18:06 19:21 WBC RBC Hgb Hct MCV MCH MCHC RDW Plt Count Seg Neutrophils % Lymphocytes % Monocytes % Eosinophils % Basophils % Absolute Neutrophils Absolute Lymphocytes Absolute Monocytes Absolute Eosinophils Absolute Basophils Carbonic Acid 1.15 HCO3/H2CO3 Ratio 19:1 ABG pH 7.39 ABG pCO2 38.3 ABG pO2 41.7 L ABG HCO3 22.5 ABG O2 Saturation 76.9 L ABG Base Excess -2.1 FiO2 88% Sodium Potassium Chloride Carbon Dioxide Anion Gap BUN Creatinine Est GFR ( Amer) Est GFR (Non-Af Amer) Glucose Lactic Acid 1.0 1.0 Calcium Total Bilirubin AST ALT Alkaline Phosphatase Total Protein Albumin Triglycerides Cholesterol LDL Cholesterol Direct VLDL Cholesterol HDL Cholesterol TSH Free T4 Urine Color Urine Appearance Urine pH Ur Specific [place] Urine Protein Urine Glucose (UA) Urine Ketones Urine Blood Urine Nitrite Ur Leukocyte Esterase Urine WBC (Auto) Urine RBC (Auto) 03/12/17 03/13/17 03/13/17 23:02 00:35 00:45 WBC RBC Hgb Hct MCV MCH MCHC RDW Plt Count Seg Neutrophils % Lymphocytes % Monocytes % Eosinophils % Basophils % Absolute Neutrophils Absolute Lymphocytes Absolute Monocytes Absolute Eosinophils Absolute Basophils Carbonic Acid 2.79 H 1.86 H HCO3/H2CO3 Ratio 9:1 12:1 ABG pH 7.05 L* 7.19 L* ABG pCO2 92.7 H* 61.8 H ABG pO2 95.5 68.4 L ABG HCO3 25.3 23.0 ABG O2 Saturation 93.3 L 88.8 L ABG Base Excess -7.5 -6.2 FiO2 100% 100% Sodium Cancelled Potassium Cancelled Chloride Cancelled Carbon Dioxide Cancelled Anion Gap Cancelled BUN Cancelled Creatinine Cancelled Est GFR ( Amer) Cancelled Est GFR (Non-Af Amer) Cancelled Glucose Cancelled Lactic Acid Calcium Cancelled Total Bilirubin AST ALT Alkaline Phosphatase Total Protein Albumin Triglycerides Cholesterol LDL Cholesterol Direct VLDL Cholesterol HDL Cholesterol TSH Free T4 Urine Color Urine Appearance Urine pH Ur Specific [place] Urine Protein Urine Glucose (UA) Urine Ketones Urine Blood Urine Nitrite Ur Leukocyte Esterase Urine WBC (Auto) Urine RBC (Auto) 03/13/17 03/13/17 03/13/17 02:34 03:50 03:50 WBC 7.6 RBC 4.65 Hgb 14.4 Hct 41.5 MCV 89 MCH 30.9 MCHC 34.6 RDW 14.8 H Plt Count 93 L Seg Neutrophils % 85.7 H Lymphocytes % 10.1 L Monocytes % 3.3 Eosinophils % 0.1 Basophils % 0.8 Absolute Neutrophils 6.5 Absolute Lymphocytes 0.8 Absolute Monocytes 0.3 Absolute Eosinophils 0.0 Absolute Basophils 0.1 Carbonic Acid HCO3/H2CO3 Ratio ABG pH ABG pCO2 ABG pO2 ABG HCO3 ABG O2 Saturation ABG Base Excess FiO2 Sodium 127.5 L 126.9 L Potassium 4.0 4.3 Chloride 96 L 97 L Carbon Dioxide 22 22 Anion Gap 10 8 BUN 37 H 35 H Creatinine 1.39 H 1.35 H Est GFR ( Amer) > 60 > 60 Est GFR (Non-Af Amer) 54 L 56 L Glucose 130 H 108 Lactic Acid Calcium 7.5 L 7.5 L Total Bilirubin 0.9 AST 188 H ALT 50 Alkaline Phosphatase 117 Total Protein 5.3 L Albumin 2.9 L Triglycerides 844 H Cholesterol 110.33 LDL Cholesterol Direct < 30 VLDL Cholesterol UNABLE TO CALCULATE HDL Cholesterol 13 L TSH Free T4 Urine Color Urine Appearance Urine pH Ur Specific [place] Urine Protein Urine Glucose (UA) Urine Ketones Urine Blood Urine Nitrite Ur Leukocyte Esterase Urine WBC (Auto) Urine RBC (Auto) 03/13/17 03/13/17 03:50 06:15 WBC RBC Hgb Hct MCV MCH MCHC RDW Plt Count Seg Neutrophils % Lymphocytes % Monocytes % Eosinophils % Basophils % Absolute Neutrophils Absolute Lymphocytes Absolute Monocytes Absolute Eosinophils Absolute Basophils Carbonic Acid 1.78 H HCO3/H2CO3 Ratio 13:1 ABG pH 7.22 L ABG pCO2 59.0 H ABG pO2 67.3 L ABG HCO3 23.7 ABG O2 Saturation 89.2 L ABG Base Excess -4.9 FiO2 100% Sodium Potassium Chloride Carbon Dioxide Anion Gap BUN Creatinine Est GFR ( Amer) Est GFR (Non-Af Amer) Glucose Lactic Acid Calcium Total Bilirubin AST ALT Alkaline Phosphatase Total Protein Albumin Triglycerides Cholesterol LDL Cholesterol Direct VLDL Cholesterol HDL Cholesterol TSH 0.08 L Free T4 1.41 Urine Color Urine Appearance Urine pH Ur Specific [place] Urine Protein Urine Glucose (UA) Urine Ketones Urine Blood Urine Nitrite Ur Leukocyte Esterase Urine WBC (Auto) Urine RBC (Auto) 03/12/17 03/12/17 03/13/17 13:15 19:21 00:35 Troponin I 0.102 0.092 0.094 Impressions: Chest/Abdomen CTA 03/12/17 00:00 IMPRESSION: 1. Study degraded by extensive motion artifact. No pulmonary emboli within the main pulmonary arteries. The segmental and subsegmental pulmonary arteries are not well evaluated on this exam. 2. Extensive diffuse bilateral ground-glass opacities, more confluent in the lower lobes, may represent multifocal pneumonia and/or pulmonary edema. Trace right pleural effusion. 3. Mediastinal and hilar adenopathy, may be reactive. Followup CT thorax in 3 months can be obtained to re-evaluate. Assessment & Plan - Diagnosis (1) ARDS (adult respiratory distress syndrome) Is this a current diagnosis for this admission?: Yes Plan: PaO2/FiO2 = [address] scan 5 lobe involvement (2) Septic shock Is this a current diagnosis for this admission?: Yes Plan: Currently using vasopressor agents Generic Name Dose Route Start Last Admin Trade Name Freq PRN Reason Stop Dose Admin Piperacillin Sod/Tazobactam 100 mls @ 200 mls/hr 03/12/17 18:00 03/13/17 11: 33 Sod 3.375 gm/ Sodium Chloride IV 03/19/17 17:59 3.375 gm Q6 DARSHAN Norepinephrine Bitartrate 4 mg 250 mls @ 0 mls/hr 03/13/17 16:08 / Dextrose IV 04/12/17 16:07 CONTINUOUS PRN THIS MED IS NOT "PRN" Protocol Titrate (3) COPD exacerbation Is this a current diagnosis for this admission?: Yes Plan: Generic Name Dose Route Start Last Admin Trade Name Freq PRN Reason Stop Dose Admin Albuterol/Ipratropium 3 ml 03/12/17 11:51 Duoneb 3 Ml Ampul NEB 04/11/17 11:50 [id number] PRN SHORTNESS OF BREATH Albuterol/Ipratropium 3 ml 03/13/17 14:00 03/13/17 13:54 Duoneb 3 Ml Ampul NEB 04/12/17 13:59 3 ml RTQ6 DARSHAN (4) Thrombocytopenia Is this a current diagnosis for this admission?: Yes (5) Pneumonia Qualifiers: Pneumonia type: due to unspecified organism Laterality: bilateral Lung location: unspecified part of lung Qualified Code(s): J18.9 - Pneumonia, unspecified organism Is this a current diagnosis for this admission?: Yes Plan: Etiology uncertain suggests Vancomycin, cefepime and Levaquin for community- acquired pneumonia this will also cover atypicals - Time Total Critical Time (Minutes): 65
--- NOTE | 2017-03-13 17:10 | PDOC PROGRESS REPORT ---
Subjective Progress Note for:: 03/13/17 Subjective:: Intubated and sedated Reason For Visit: PNEUMONIA SEPSIS Physical Exam Vital Signs: Temp Pulse Resp BP Pulse Ox 102.9 F H 114 H 26 H 103/66 92 03/12/17 21:23 03/12/17 21:23 03/13/17 07:32 03/13/17 07:32 03/13/17 07:32 Intake & Output 03/12/17 03/13/17 03/14/17 06:59 06:59 06:59 Output Total 850 Balance -850 Weight 112.5 kg General appearance: PRESENT: no acute distress, disheveled, obese. ABSENT: cooperative Head exam: PRESENT: atraumatic, normocephalic Eye exam: PRESENT: conjunctiva pale. ABSENT: nystagmus, periorbital swelling, scleral icterus Mouth exam: PRESENT: dry mucosa, neck supple, tongue midline, other - ET tube in place. ABSENT: laceration, moist Neck exam: ABSENT: carotid bruit, JVD, lymphadenopathy, thyromegaly, tracheal deviation, tracheostomy Respiratory exam: PRESENT: crackles, decreased breath sounds, prolonged expiratory phas, rhonchi, symmetrical, tachypnea, unlabored, wheezes. ABSENT: accessory muscle use, chest wall tenderness, clear to auscultation juan josé, retraction, stridor Cardiovascular exam: PRESENT: RRR, +S1, +S2 Pulses: PRESENT: normal radial pulses GI/Abdominal exam: PRESENT: diminished bowel sounds, soft Gentrourinary exam: PRESENT: indwelling catheter Extremities exam: ABSENT: clubbing, joint swelling Musculoskeletal exam: PRESENT: normal inspection. ABSENT: ambulatory, deformity , dislocation Neurological exam: ABSENT: oriented to person, oriented to place, oriented to time, oriented to situation Skin exam: PRESENT: dry, warm Results Laboratory Results: 03/13/17 03:50 03/13/17 03:50 03/12/17 03/12/17 03/12/17 11:43 13:15 13:34 WBC RBC Hgb Hct MCV MCH MCHC RDW Plt Count Seg Neutrophils % Lymphocytes % Monocytes % Eosinophils % Basophils % Absolute Neutrophils Absolute Lymphocytes Absolute Monocytes Absolute Eosinophils Absolute Basophils Carbonic Acid 1.07 HCO3/H2CO3 Ratio 20:1 ABG pH 7.40 ABG pCO2 35.4 ABG pO2 64.2 L ABG HCO3 21.5 ABG O2 Saturation 92.7 L ABG Base Excess -2.6 FiO2 80 Sodium Potassium Chloride Carbon Dioxide Anion Gap BUN Creatinine Est GFR ( Amer) Est GFR (Non-Af Amer) Glucose Lactic Acid 1.1 Calcium Total Bilirubin AST ALT Alkaline Phosphatase Total Protein Albumin Triglycerides Cholesterol LDL Cholesterol Direct VLDL Cholesterol HDL Cholesterol TSH Free T4 Urine Color YELLOW Urine Appearance CLOUDY Urine pH 5.0 Ur Specific [place] 1.016 Urine Protein 100 H Urine Glucose (UA) NEGATIVE Urine Ketones NEGATIVE Urine Blood LARGE H Urine Nitrite NEGATIVE Ur Leukocyte Esterase NEGATIVE Urine WBC (Auto) 6 Urine RBC (Auto) 1 03/12/17 03/12/17 03/12/17 16:04 18:06 19:21 WBC RBC Hgb Hct MCV MCH MCHC RDW Plt Count Seg Neutrophils % Lymphocytes % Monocytes % Eosinophils % Basophils % Absolute Neutrophils Absolute Lymphocytes Absolute Monocytes Absolute Eosinophils Absolute Basophils Carbonic Acid 1.15 HCO3/H2CO3 Ratio 19:1 ABG pH 7.39 ABG pCO2 38.3 ABG pO2 41.7 L ABG HCO3 22.5 ABG O2 Saturation 76.9 L ABG Base Excess -2.1 FiO2 88% Sodium Potassium Chloride Carbon Dioxide Anion Gap BUN Creatinine Est GFR ( Amer) Est GFR (Non-Af Amer) Glucose Lactic Acid 1.0 1.0 Calcium Total Bilirubin AST ALT Alkaline Phosphatase Total Protein Albumin Triglycerides Cholesterol LDL Cholesterol Direct VLDL Cholesterol HDL Cholesterol TSH Free T4 Urine Color Urine Appearance Urine pH Ur Specific [place] Urine Protein Urine Glucose (UA) Urine Ketones Urine Blood Urine Nitrite Ur Leukocyte Esterase Urine WBC (Auto) Urine RBC (Auto) 03/12/17 03/13/17 03/13/17 23:02 00:35 00:45 WBC RBC Hgb Hct MCV MCH MCHC RDW Plt Count Seg Neutrophils % Lymphocytes % Monocytes % Eosinophils % Basophils % Absolute Neutrophils Absolute Lymphocytes Absolute Monocytes Absolute Eosinophils Absolute Basophils Carbonic Acid 2.79 H 1.86 H HCO3/H2CO3 Ratio 9:1 12:1 ABG pH 7.05 L* 7.19 L* ABG pCO2 92.7 H* 61.8 H ABG pO2 95.5 68.4 L ABG HCO3 25.3 23.0 ABG O2 Saturation 93.3 L 88.8 L ABG Base Excess -7.5 -6.2 FiO2 100% 100% Sodium Cancelled Potassium Cancelled Chloride Cancelled Carbon Dioxide Cancelled Anion Gap Cancelled BUN Cancelled Creatinine Cancelled Est GFR ( Amer) Cancelled Est GFR (Non-Af Amer) Cancelled Glucose Cancelled Lactic Acid Calcium Cancelled Total Bilirubin AST ALT Alkaline Phosphatase Total Protein Albumin Triglycerides Cholesterol LDL Cholesterol Direct VLDL Cholesterol HDL Cholesterol TSH Free T4 Urine Color Urine Appearance Urine pH Ur Specific [place] Urine Protein Urine Glucose (UA) Urine Ketones Urine Blood Urine Nitrite Ur Leukocyte Esterase Urine WBC (Auto) Urine RBC (Auto) 03/13/17 03/13/17 03/13/17 02:34 03:50 03:50 WBC 7.6 RBC 4.65 Hgb 14.4 Hct 41.5 MCV 89 MCH 30.9 MCHC 34.6 RDW 14.8 H Plt Count 93 L Seg Neutrophils % 85.7 H Lymphocytes % 10.1 L Monocytes % 3.3 Eosinophils % 0.1 Basophils % 0.8 Absolute Neutrophils 6.5 Absolute Lymphocytes 0.8 Absolute Monocytes 0.3 Absolute Eosinophils 0.0 Absolute Basophils 0.1 Carbonic Acid HCO3/H2CO3 Ratio ABG pH ABG pCO2 ABG pO2 ABG HCO3 ABG O2 Saturation ABG Base Excess FiO2 Sodium 127.5 L 126.9 L Potassium 4.0 4.3 Chloride 96 L 97 L Carbon Dioxide 22 22 Anion Gap 10 8 BUN 37 H 35 H Creatinine 1.39 H 1.35 H Est GFR ( Amer) > 60 > 60 Est GFR (Non-Af Amer) 54 L 56 L Glucose 130 H 108 Lactic Acid Calcium 7.5 L 7.5 L Total Bilirubin 0.9 AST 188 H ALT 50 Alkaline Phosphatase 117 Total Protein 5.3 L Albumin 2.9 L Triglycerides 844 H Cholesterol 110.33 LDL Cholesterol Direct < 30 VLDL Cholesterol UNABLE TO CALCULATE HDL Cholesterol 13 L TSH Free T4 Urine Color Urine Appearance Urine pH Ur Specific [place] Urine Protein Urine Glucose (UA) Urine Ketones Urine Blood Urine Nitrite Ur Leukocyte Esterase Urine WBC (Auto) Urine RBC (Auto) 03/13/17 03/13/17 03:50 06:15 WBC RBC Hgb Hct MCV MCH MCHC RDW Plt Count Seg Neutrophils % Lymphocytes % Monocytes % Eosinophils % Basophils % Absolute Neutrophils Absolute Lymphocytes Absolute Monocytes Absolute Eosinophils Absolute Basophils Carbonic Acid 1.78 H HCO3/H2CO3 Ratio 13:1 ABG pH 7.22 L ABG pCO2 59.0 H ABG pO2 67.3 L ABG HCO3 23.7 ABG O2 Saturation 89.2 L ABG Base Excess -4.9 FiO2 100% Sodium Potassium Chloride Carbon Dioxide Anion Gap BUN Creatinine Est GFR ( Amer) Est GFR (Non-Af Amer) Glucose Lactic Acid Calcium Total Bilirubin AST ALT Alkaline Phosphatase Total Protein Albumin Triglycerides Cholesterol LDL Cholesterol Direct VLDL Cholesterol HDL Cholesterol TSH 0.08 L Free T4 1.41 Urine Color Urine Appearance Urine pH Ur Specific [place] Urine Protein Urine Glucose (UA) Urine Ketones Urine Blood Urine Nitrite Ur Leukocyte Esterase Urine WBC (Auto) Urine RBC (Auto) 03/12/17 03/12/17 03/13/17 13:15 19:21 00:35 Troponin I 0.102 0.092 0.094 Impressions: Chest/Abdomen CTA 03/12/17 00:00 IMPRESSION: 1. Study degraded by extensive motion artifact. No pulmonary emboli within the main pulmonary arteries. The segmental and subsegmental pulmonary arteries are not well evaluated on this exam. 2. Extensive diffuse bilateral ground-glass opacities, more confluent in the lower lobes, may represent multifocal pneumonia and/or pulmonary edema. Trace right pleural effusion. 3. Mediastinal and hilar adenopathy, may be reactive. Followup CT thorax in 3 months can be obtained to re-evaluate. Assessment & Plan - Diagnosis (1) ARDS (adult respiratory distress syndrome) Is this a current diagnosis for this admission?: Yes Plan: PaO2/FiO2 = [address] scan 5 lobe involvement Unchanged over last 24 hours (2) COPD exacerbation Is this a current diagnosis for this admission?: Yes Plan: Generic Name Dose Route Start Last Admin Trade Name Freq PRN Reason Stop Dose Admin Albuterol/Ipratropium 3 ml 03/12/17 11:51 Duoneb 3 Ml Ampul NEB 04/11/17 11:50 [id number] PRN SHORTNESS OF BREATH Albuterol/Ipratropium 3 ml 03/13/17 14:00 03/13/17 13:54 Duoneb 3 Ml Ampul NEB 04/12/17 13:59 3 ml RTQ6 DARSHAN (3) Pneumonia Qualifiers: Pneumonia type: due to unspecified organism Laterality: bilateral Lung location: unspecified part of lung Qualified Code(s): J18.9 - Pneumonia, unspecified organism Is this a current diagnosis for this admission?: Yes Plan: Etiology uncertain suggests Vancomycin, cefepime and Levaquin for community- acquired pneumonia this will also cover atypicals (4) Septic shock Is this a current diagnosis for this admission?: Yes Plan: Currently using vasopressor agents Generic Name Dose Route Start Last Admin Trade Name Freq PRN Reason Stop Dose Admin Piperacillin Sod/Tazobactam 100 mls @ 200 mls/hr 03/12/17 18:00 03/13/17 11: 33 Sod 3.375 gm/ Sodium Chloride IV 03/19/17 17:59 3.375 gm Q6 DARSHAN Norepinephrine Bitartrate 4 mg 250 mls @ 0 mls/hr 03/13/17 16:08 / Dextrose IV 04/12/17 16:07 CONTINUOUS PRN THIS MED IS NOT "PRN" Protocol Titrate (5) Thrombocytopenia Is this a current diagnosis for this admission?: Yes Plan: Thrombocytopenia persist absence of leukocytosis - Time Total Critical Time (Minutes): 45
[2017-03-13] MEDS ORDERED: LEVOFLOXACIN 750 MG/D5W RTU 750 MG/150 ML RTUPB IV SCH (18:00)
[2017-03-13] MEDS ORDERED: NICOTINE 21 MG/24 HR PATCH.TD24 TD SCH (18:00)
[2017-03-13] MEDS ORDERED: CEFEPIME 2 GM/D5W RTU 4 GM/100 ML RTUPB IV ONE (18:02)
[2017-03-13] MEDS: CEFEPIME 2 GM/D5W RTU 2 GM/50 ML RTUPB IV SCH (18:11)
[2017-03-13] MEDS: SODIUM BICARBONATE 8.4% INJ 50 MEQ/50 ML DISP.SYRIN IV SCH (23:06)
[2017-03-14] MEDS: PIPERACILLIN SODIUM/TAZOBACTAM 3.375 GM in NORMAL SALINE 100 ML IV SCH ×3 (00:07→11:52)
[2017-03-14] MEDS: PROPOFOL 100 ML IV PRN ×5 (00:39→12:50)
[2017-03-14] MEDS: IPRATROPIUM/ALBUTEROL 0.5-2.5 MG/3 ML AMPUL NEB SCH ×2 (02:20→07:40)
[2017-03-14] MEDS: NORMAL SALINE 500 ML with ROCURONIUM BROMIDE 500 MG IV PRN ×4 (03:00→07:29)
--- NOTE | 2017-03-14 06:03 | RADIOLOGY REPORT (SQ) ---
EXAM DESCRIPTION: CHEST SINGLE VIEW CLINICAL HISTORY: resp failure pna COMPARISON: 03/13/2017 FINDINGS: Single frontal view of the chest. Endotracheal tube with tip at the level of clavicles. NG tube with tip below the diaphragm. Heart is not enlarged. Interval improved aeration of the lung bases with persistent bilateral airspace opacity. No pneumothorax identified. No new osseous abnormality. Upper abdominal soft tissues are unremarkable. IMPRESSION: 1. Improved aeration of the lung bases with persistent bilateral airspace opacity.
[2017-03-14] MEDS: CEFEPIME 2 GM/D5W RTU 2 GM/50 ML RTUPB IV SCH (06:34)
[2017-03-14] MEDS: SODIUM BICARBONATE 8.4% INJ 50 MEQ/50 ML DISP.SYRIN IV SCH (06:34)
[2017-03-14 06:57] LABS: ABSOLUTE EOSINOPHILS # (AUTO) 0.1 10^3/uL (0.0-0.6); ABSOLUTE LYMPHOCYTES (AUTO) 0.7 10^3/uL (0.5-4.7); ABSOLUTE MONOCYTES (AUTO) 0.6 10^3/uL (0.1-1.4); BASOPHILS % (AUTO) 0.3 % (0-2); EOSINOPHILS % (AUTO) 0.8 % (0-6); HEMATOCRIT 36.4 % (37.9-51.0); HEMOGLOBIN 12.8 g/dL (13.5-17.0); LYMPHOCYTES % (AUTO) 9.2 % (13-45); MEAN CORPUSCULAR HEMOGLOBIN 31.9 pg (27.0-33.4); MEAN CORPUSCULAR HGB CONC 35.1 g/dL (32.0-36.0); MEAN CORPUSCULAR VOLUME 91 fl (80-97); MONOCYTES % (AUTO) 7.9 % (3-13); RED CELL DISTRIBUTION WIDTH 15.2 % (11.5-14.0); SEGMENTED NEUTROPHILS % (AUTO) 81.8 % (42-78); TOTAL CELLS COUNTED % (AUTO) 100 %; WHITE BLOOD COUNT 7.4 10^3/uL (4.0-10.5)
[2017-03-14 07:05] LABS: ALANINE AMINOTRANSFERASE 51 U/L (21-72); ALBUMIN 2.6 g/dL (3.5-5.0); ALKALINE PHOSPHATASE 112 U/L (38-126); ANION GAP 12 (5-19); ASPARTATE AMINO TRANSFERASE 142 U/L (17-59); BILIRUBIN,DIRECT 1.4 mg/dL (0.0-0.4); BILIRUBIN,TOTAL 1.4 mg/dL (0.2-1.3); BLOOD UREA NITROGEN 47 mg/dL (7-20); CALCIUM 7.4 mg/dL (8.4-10.2); CARBON DIOXIDE 21 mmol/L (22-30); CHLORIDE 100 mmol/L (98-107); GLUCOSE 172 mg/dL (75-110); MAGNESIUM 2.6 mg/dL (1.6-2.3); POTASSIUM 4.3 mmol/L (3.6-5.0); SODIUM 133.4 mmol/L (137-145); TOTAL PROTEIN 5.1 g/dL (6.3-8.2)
[2017-03-14 07:13] LABS: TRIGLYCERIDES 1552 mg/dL (<150)
[2017-03-14 07:41] LABS: ARTERIAL BLOOD HCO3 22.6 mmol/L (20-26); ARTERIAL BLOOD O2 SATURATION 96.8 % (94-98); ARTERIAL BLOOD PCO2 59.8 mmHg (35-45); ARTERIAL BLOOD PO2 109.1 mmHg (80-100); ARTERIAL BLOOD TOTAL CO2 24.4 mmol/L (23-27)
[2017-03-14 07:42] LABS: ARTERIAL BLOOD FIO2 80%
[2017-03-14 07:42] LABS: PLATELET COUNT 87 10^3/uL (150-450)
[2017-03-14] MEDS ORDERED: NORMAL SALINE 1000 ML 1,000 ML IV ONE (08:52)
[2017-03-14] MEDS: PANTOPRAZOLE SODIUM 40 MG VIAL IV SCH (09:14)
--- NOTE | 2017-03-14 10:14 | PDOC PROGRESS REPORT ---
Subjective Progress Note for:: 03/14/17 Subjective:: Intubated and sedated Reason For Visit: RESPIRATORY DISTRESS,PNEUMONIA, SEPSIS Physical Exam Vital Signs: Temp Pulse Resp BP Pulse Ox 96.1 F L 82 19 113/56 L 96 03/14/17 08:00 03/14/17 08:00 03/14/17 08:48 03/14/17 08:48 03/14/17 08:48 Intake & Output 03/13/17 03/14/17 03/15/17 06:59 06:59 06:59 Output Total 850 1580 25 Balance -850 -1580 -25 Weight 112.5 kg 117.4 kg General appearance: PRESENT: no acute distress, disheveled, obese. ABSENT: cooperative, mild distress, morbidly obese, severe distress Head exam: PRESENT: atraumatic, normocephalic Eye exam: PRESENT: conjunctiva pale. ABSENT: conjunctival injection, conjunctiva pink, nystagmus, scleral icterus Mouth exam: PRESENT: dry mucosa, neck supple, tongue midline, other - ET tube. ABSENT: laceration, moist Neck exam: ABSENT: carotid bruit, JVD, lymphadenopathy, thyromegaly, tracheal deviation, tracheostomy Respiratory exam: PRESENT: decreased breath sounds, prolonged expiratory phas, rales, rhonchi, symmetrical, tachypnea, unlabored, wheezes. ABSENT: accessory muscle use, chest wall tenderness, clear to auscultation juan josé, crackles, retraction, stridor Cardiovascular exam: PRESENT: RRR, +S1, +S2 Pulses: PRESENT: normal radial pulses GI/Abdominal exam: PRESENT: diminished bowel sounds, soft Gentrourinary exam: PRESENT: indwelling catheter Extremities exam: ABSENT: clubbing, joint swelling Musculoskeletal exam: PRESENT: normal inspection. ABSENT: ambulatory, deformity , dislocation Neurological exam: ABSENT: alert, awake, oriented to person Skin exam: PRESENT: dry, warm Results Laboratory Results: 03/14/17 06:45 03/14/17 06:45 03/13/17 03/14/17 03/14/17 14:32 06:45 06:45 WBC 7.4 RBC 4.00 L Hgb 12.8 L Hct 36.4 L MCV 91 MCH 31.9 MCHC 35.1 RDW 15.2 H Plt Count 87 L Seg Neutrophils % 81.8 H Lymphocytes % 9.2 L Monocytes % 7.9 Eosinophils % 0.8 Basophils % 0.3 Absolute Neutrophils 6.0 Absolute Lymphocytes 0.7 Absolute Monocytes 0.6 Absolute Eosinophils 0.1 Absolute Basophils 0.0 Carbonic Acid 1.80 H HCO3/H2CO3 Ratio 12:1 ABG pH 7.19 L* ABG pCO2 59.8 H ABG pO2 102.3 H ABG HCO3 22.2 ABG O2 Saturation 96.1 ABG Base Excess -6.8 FiO2 100% Sodium 133.4 L Potassium 4.3 Chloride 100 Carbon Dioxide 21 L Anion Gap 12 BUN 47 H Creatinine 2.31 H Est GFR ( Amer) 37 L Est GFR (Non-Af Amer) 30 L Glucose 172 H Lactic Acid Calcium 7.4 L Magnesium 2.6 H Total Bilirubin 1.4 H AST 142 H ALT 51 Alkaline Phosphatase 112 Total Protein 5.1 L Albumin 2.6 L Triglycerides 1552 H 03/14/17 03/14/17 06:45 07:20 WBC RBC Hgb Hct MCV MCH MCHC RDW Plt Count Seg Neutrophils % Lymphocytes % Monocytes % Eosinophils % Basophils % Absolute Neutrophils Absolute Lymphocytes Absolute Monocytes Absolute Eosinophils Absolute Basophils Carbonic Acid 1.80 H HCO3/H2CO3 Ratio 12:1 ABG pH 7.20 L* ABG pCO2 59.8 H ABG pO2 109.1 H ABG HCO3 22.6 ABG O2 Saturation 96.8 ABG Base Excess -6.0 FiO2 80% Sodium Potassium Chloride Carbon Dioxide Anion Gap BUN Creatinine Est GFR ( Amer) Est GFR (Non-Af Amer) Glucose Lactic Acid 1.8 Calcium Magnesium Total Bilirubin AST ALT Alkaline Phosphatase Total Protein Albumin Triglycerides 03/13/17 00:50 Sputum Gram Stain - Final 03/13/17 00:50 Sputum Sputum Culture - Final 03/12/17 03/12/17 03/13/17 13:15 19:21 00:35 Troponin I 0.102 0.092 0.094 Impressions: Chest/Abdomen CTA 03/12/17 00:00 IMPRESSION: 1. Study degraded by extensive motion artifact. No pulmonary emboli within the main pulmonary arteries. The segmental and subsegmental pulmonary arteries are not well evaluated on this exam. 2. Extensive diffuse bilateral ground-glass opacities, more confluent in the lower lobes, may represent multifocal pneumonia and/or pulmonary edema. Trace right pleural effusion. 3. Mediastinal and hilar adenopathy, may be reactive. Followup CT thorax in 3 months can be obtained to re-evaluate. Chest X-Ray 03/14/17 06:00 IMPRESSION: 1. Improved aeration of the lung bases with persistent bilateral airspace opacity. Assessment & Plan - Diagnosis (1) ARDS (adult respiratory distress syndrome) Is this a current diagnosis for this admission?: Yes Plan: PaO2/FiO2 = decreasing to [address] scan 5 lobe involvement worse over last 24 hours (2) COPD exacerbation Is this a current diagnosis for this admission?: Yes Plan: Generic Name Dose Route Start Last Admin Trade Name Freq PRN Reason Stop Dose Admin Albuterol/Ipratropium 3 ml 03/12/17 11:51 Duoneb 3 Ml Ampul NEB 04/11/17 11:50 [id number] PRN SHORTNESS OF BREATH Albuterol/Ipratropium 3 ml 03/13/17 14:00 03/13/17 13:54 Duoneb 3 Ml Ampul NEB 04/12/17 13:59 3 ml RTQ6 DARSHAN (3) Pneumonia Qualifiers: Pneumonia type: due to unspecified organism Laterality: bilateral Lung location: unspecified part of lung Qualified Code(s): J18.9 - Pneumonia, unspecified organism Is this a current diagnosis for this admission?: Yes Plan: Etiology uncertain no + cultures (4) Septic shock Is this a current diagnosis for this admission?: Yes Plan: currently off vasopressor (5) Thrombocytopenia Is this a current diagnosis for this admission?: Yes Plan: persist - Time Total Critical Time (Minutes): 50 - Plan Summary Plan Summary: discussed with PCP shanna torre strongly consider tertiary care
--- NOTE | 2017-03-14 10:57 | PDOC TRANSFER SUMMARY ---
General Admission Date/PCP: 03/12/17 11:51 CHRISTIANA DALEY MD Admission Date: 03/12/17 Transfer Date: 03/14/17 Accepting Facility: [facility] Resuscitation Status: Full Code - Transfer Diagnosis (1) ARDS (adult respiratory distress syndrome) Is this a current diagnosis for this admission?: Yes Diagnosis Summary: Patient now fitting definition of ARDS. Due to patient exceeding what our facility is able to do have requested for transfer invited ICU attending has agreed to accept patient. (2) Acute and chronic respiratory failure with hypoxia Is this a current diagnosis for this admission?: Yes Diagnosis Summary: Acute Respiratory Failure Most likely Secondary to Viral Illness with Component of COPD: Patient was admitted to the hospital due to respiratory failure. Patient was given a trial of BiPAP and failed therefore patient had to be intubated during the intubation procedure patient has significant erythema redness associated around vocal cords. Initially attempted to place an 8 cuffed ET tube however had difficulty placing therefore placed a 7 cuffed ET tube. Patient was intubated had difficulty obtaining sats in the 90s therefore patient was paralyzed. Patient currently on vent settings of: SIMV pressure support PRBC respiratory rate of 28 tidal volume of 500 versus support of 15 PEEP of 18 FiO2 of 80 O2 sats between 92-96%. Patient's PaO2 to FiO2 ratio is 136 which is fitting definition of ARDS. Pt is being transferred due to as not having pulmonary coverage and worsening pulmonary status. (3) Sepsis Is this a current diagnosis for this admission?: Yes Diagnosis Summary: Blood cultures Negative for 48 hours. Urine culture No growth for 48 hours Final. Sputum Culture Final however poor specimen. Most likely viral illness our Flu test was negative. (4) Pneumonia Is this a current diagnosis for this admission?: Yes Diagnosis Summary: Pt currently on Double coverage by Pulmonary who is going out of town. CTA of chest demonstrated no PE but demonstrated evidence of Ground glass opacity. (5) Concern for PE Is this a current diagnosis for this admission?: Yes Diagnosis Summary: Ruled out. (6) Dehydration Is this a current diagnosis for this admission?: Yes Diagnosis Summary: Pt has been given 5 liter bolus and continue IVF rate at 150cc/ml. (7) Acute renal injury due to hypovolemia Is this a current diagnosis for this admission?: Yes Diagnosis Summary: Pt's renal function will have to be monitored closely. Pt with good urine output. (8) Elevated lactic acid level Is this a current diagnosis for this admission?: Yes Diagnosis Summary: Resolved. (9) Elevated LFTs Is this a current diagnosis for this admission?: Yes Diagnosis Summary: Recommend following. (10) Testosterone deficiency in male Is this a current diagnosis for this admission?: Yes Diagnosis Summary: Discontinued Testosterone replacement. (11) Nausea & vomiting Is this a current diagnosis for this admission?: Yes Diagnosis Summary: Pt currently sedated with NGT in place. (12) Diarrhea Is this a current diagnosis for this admission?: Yes Diagnosis Summary: Resolved. (13) Chest pain Is this a current diagnosis for this admission?: Yes Diagnosis Summary: Troponins neg. (14) Hyponatremia Is this a current diagnosis for this admission?: Yes Diagnosis Summary: Secondary to Hypovolemia: Improving with IVFs (15) Hypertriglyceridemia Is this a current diagnosis for this admission?: Yes Diagnosis Summary: Pt with elevated triglycerides. Pt will need to be placed on medication and testosterone may need to be adjusted. (16) Thrombocytopenia Is this a current diagnosis for this admission?: Yes Diagnosis Summary: No anticoagulation has been given during stay. Most likely viral. Continue SCDs and monitor. - Transfer Medications Transfer Medications: Current Medications Acetaminophen (Tylenol 325 Mg Tablet) 650 mg PO Q4HP PRN PRN Reason: PAIN OR FEVER Stop: 04/11/17 11:50 Albuterol/Ipratropium (Duoneb 3 Ml Ampul) 3 ml NEB RTQ4HP PRN PRN Reason: SHORTNESS OF BREATH Stop: 04/11/17 11:50 Albuterol/Ipratropium (Duoneb 3 Ml Ampul) 3 ml NEB RTQ6 DARSHAN Stop: 04/12/17 13:59 Last Admin: 03/14/17 07:40 Dose: 3 ml Piperacillin Sod/Tazobactam (Sod 3.375 gm/ Sodium Chloride) 100 mls @ 200 mls/ hr IV Q6 DARSHAN Stop: 03/19/17 17:59 Last Admin: 03/14/17 06:34 Dose: 3.375 gm Propofol (Diprivan Rtu 1000 Mg/100 Ml Inf.Bottle) 100 mls @ 0 mls/hr IV CONTINUOUS PRN; Protocol; Titrate PRN Reason: THIS MED IS NOT "PRN" Stop: 04/11/17 18:56 Last Admin: 03/14/17 10:00 Dose: 100 ml Midazolam HCl (Versed Rtu 50 Mg/100 Ml Premix Bag) 50 mg in 100 mls @ 0 mls/hr IV CONTINUOUS PRN; Protocol; Titrate PRN Reason: THIS MED IS NOT "PRN" Stop: 03/20/17 07:32 Last Admin: 03/13/17 08:01 Dose: 100 ml Rocuronium [place] 500 mg/ (Sodium Chloride) 500 mls @ 0 mls/hr IV CONTINUOUS PRN; Titrate PRN Reason: THIS MED IS NOT "PRN" Stop: 04/12/17 08:52 Last Admin: 03/14/17 07:29 Dose: 500 mg Sodium Chloride (Nacl 0.9% 1000 Ml Iv Soln) 1,000 mls @ 150 mls/hr IV CONTINUOUS PRN PRN Reason: THIS MED IS NOT "PRN" Stop: 04/11/17 11:50 Norepinephrine Bitartrate 4 mg (/ Dextrose) 250 mls @ 0 mls/hr IV CONTINUOUS PRN; Protocol; Titrate PRN Reason: THIS MED IS NOT "PRN" Stop: 04/12/17 16:07 Levofloxacin/Dextrose (Levaquin Rtu 750 Mg/D5w 150 Ml Premix) 750 mg in 150 mls @ 100 mls/hr IV QPM [facility] Stop: 03/20/17 17:59 Last Admin: 03/13/17 17:57 Dose: 150 ml Cefepime HCl 2 gm/ Dextrose 50 mls @ 100 mls/hr IV Q12A [facility] Stop: 03/20/17 17:59 Influenza Virus Vaccine Quadrival (Fluzone Adlt Quad [id number] Vac 0.5 Ml Syr) 0.5 ml IM .DISCHARGE PRN PRN Reason: THIS MED IS NOT "PRN" Stop: 04/12/17 05:32 Nicotine (Nicoderm 21 Mg/24 Hr Transderm Patch) 1 each TD QPM [facility] Stop: 04/12/17 17:59 Last Admin: 03/13/17 17:58 Dose: 1 each Ondansetron HCl (Zofran Odt 4 Mg Tablet) 4 mg PO Q4HP PRN PRN Reason: FOR NAUSEA/VOMITING Stop: 04/11/17 11:50 Oxycodone/Acetaminophen (Percocet 5-325 Mg Tablet) 1 tab PO Q6HP PRN PRN Reason: pain Stop: 03/19/17 11:50 Pantoprazole Sodium (Protonix Iv Inj 40 Mg Vial) 40 mg IV Q12 DARSHAN Stop: 03/16/17 09:59 Last Admin: 03/14/17 09:14 Dose: 40 mg - Allergies Allergies/Adverse Reactions: No Known Allergies Allergy (Unverified 03/01/17 13:21) - Diet/Activity Discharge Diet: Other (Comments) - NPO Discharge Activity: Bedrest Hospital Course Hospital Course: This is a 51-year-old gentleman that presented to our facility with complaint of difficulty breathing. reported that several people in the family have had upper respiratory infections. states the patient has been sick for approximately 6 days and she brought him to the hospital today because he was not improving. Patient was seen in the emergency department patient was immediately placed on BiPAP. Patient was also noted to be confused during that time. Patient had an ABG that was done that demonstrated respiratory acidosis. Patient continued to decline and therefore required intubation. During the intubation procedure patient was noted to have significant erythema around vocal cords. 8 cuff ET tube was attempted first time however was successful with a 7 cuffed ET tube. Due to patient's worsening respiratory failure our pulmonary doctor has requested that patient be transferred due to him being out of town starting later today. Due to patient fitting definition of ARDS concerned that patient will exceed what our facility is able to provide without specialist support. Patient's blood culture, urine culture, and sputum have demonstrated no growth. Patient's flu test at our facility was negative however would recommend doing a viral panel PCR to see if any viral infection can be identified. Patient did have a CTA of chest to evaluate for PE which demonstrated no evidence of PE but multiple areas of ground glass opacities. Patient was also noted to have emphysematous changes in the apices of both lungs. Patient's renal function at time of admission was 1.39 then decreased to 1.35 and then increased to 2.23. Patient has been given additional IV fluids for volume resuscitation. Patient initially was requiring pressors however patient has been weaned off of pressors. Patient also noted to have hypertriglyceridemia which could be associated with patient's hormone replacement. PT also noted to have elevated LFTs which could also be associated with patient's hormone replacement therapy. Patient was noted to have hyponatremia at time of admission however that has improved with IV fluid administration patient's hyponatremia was secondary to hypovolemic state. Appreciate Berna's assistance with care. Dr. Corrales accepting physician. Physical Exam Vital Signs: Temp Pulse Resp BP Pulse Ox 95.7 F L 81 18 108/58 L 95 03/14/17 10:00 03/14/17 10:00 03/14/17 10:03 03/14/17 10:03 03/14/17 10:03 Intake & Output 03/13/17 03/14/17 03/15/17 06:59 06:59 06:59 Output Total 850 1580 120 Balance -850 -1580 -120 Weight 112.5 kg 117.4 kg General appearance: PRESENT: no acute distress, well-developed, well-nourished, other - Intubated Head exam: PRESENT: atraumatic, normocephalic Eye exam: PRESENT: other - eyes closed. sedated Ear exam: PRESENT: normal external ear exam Mouth exam: PRESENT: other - ETT in place Neck exam: ABSENT: carotid bruit, JVD, lymphadenopathy, thyromegaly Respiratory exam: PRESENT: other - good breath sounds heard in upper lobes but diminished at bases bilaterally. +scant crackles. Cardiovascular exam: PRESENT: RRR. ABSENT: diastolic murmur, rubs, systolic murmur Pulses: PRESENT: normal dorsalis pedis pul Vascular exam: PRESENT: normal capillary refill GI/Abdominal exam: PRESENT: normal bowel sounds, soft. ABSENT: distended, guarding, mass, organolmegaly, rebound, tenderness Rectal exam: PRESENT: deferred Extremities exam: PRESENT: full ROM. ABSENT: calf tenderness, clubbing, pedal edema Neurological exam: PRESENT: other - sedated Skin exam: PRESENT: dry, warm Results Laboratory Results: 03/14/17 06:45 03/14/17 06:45 03/13/17 03/14/17 03/14/17 14:32 06:45 06:45 WBC 7.4 RBC 4.00 L Hgb 12.8 L Hct 36.4 L MCV 91 MCH 31.9 MCHC 35.1 RDW 15.2 H Plt Count 87 L Seg Neutrophils % 81.8 H Lymphocytes % 9.2 L Monocytes % 7.9 Eosinophils % 0.8 Basophils % 0.3 Absolute Neutrophils 6.0 Absolute Lymphocytes 0.7 Absolute Monocytes 0.6 Absolute Eosinophils 0.1 Absolute Basophils 0.0 Carbonic Acid 1.80 H HCO3/H2CO3 Ratio 12:1 ABG pH 7.19 L* ABG pCO2 59.8 H ABG pO2 102.3 H ABG HCO3 22.2 ABG O2 Saturation 96.1 ABG Base Excess -6.8 FiO2 100% Sodium 133.4 L Potassium 4.3 Chloride 100 Carbon Dioxide 21 L Anion Gap 12 BUN 47 H Creatinine 2.31 H Est GFR ( Amer) 37 L Est GFR (Non-Af Amer) 30 L Glucose 172 H Lactic Acid Calcium 7.4 L Magnesium 2.6 H Total Bilirubin 1.4 H AST 142 H ALT 51 Alkaline Phosphatase 112 Total Protein 5.1 L Albumin 2.6 L Triglycerides 1552 H 03/14/17 03/14/17 06:45 07:20 WBC RBC Hgb Hct MCV MCH MCHC RDW Plt Count Seg Neutrophils % Lymphocytes % Monocytes % Eosinophils % Basophils % Absolute Neutrophils Absolute Lymphocytes Absolute Monocytes Absolute Eosinophils Absolute Basophils Carbonic Acid 1.80 H HCO3/H2CO3 Ratio 12:1 ABG pH 7.20 L* ABG pCO2 59.8 H ABG pO2 109.1 H ABG HCO3 22.6 ABG O2 Saturation 96.8 ABG Base Excess -6.0 FiO2 80% Sodium Potassium Chloride Carbon Dioxide Anion Gap BUN Creatinine Est GFR ( Amer) Est GFR (Non-Af Amer) Glucose Lactic Acid 1.8 Calcium Magnesium Total Bilirubin AST ALT Alkaline Phosphatase Total Protein Albumin Triglycerides 03/13/17 00:50 Sputum Gram Stain - Final 03/13/17 00:50 Sputum Sputum Culture - Final 03/12/17 03/12/17 03/13/17 13:15 19:21 00:35 Troponin I 0.102 0.092 0.094 Impressions: Chest/Abdomen CTA 03/12/17 00:00 IMPRESSION: 1. Study degraded by extensive motion artifact. No pulmonary emboli within the main pulmonary arteries. The segmental and subsegmental pulmonary arteries are not well evaluated on this exam. 2. Extensive diffuse bilateral ground-glass opacities, more confluent in the lower lobes, may represent multifocal pneumonia and/or pulmonary edema. Trace right pleural effusion. 3. Mediastinal and hilar adenopathy, may be reactive. Followup CT thorax in 3 months can be obtained to re-evaluate. Chest X-Ray 03/14/17 06:00 IMPRESSION: 1. Improved aeration of the lung bases with persistent bilateral airspace opacity. Plan Time Spent: Greater than 30 Minutes - Transfer to [facility]
[2017-03-14 11:52] LABS: ARTERIAL BLOOD BASE EXCESS -7.8 mmol/L; ARTERIAL BLOOD H2CO3 1.23 mmol/L (1.05-1.35); ARTERIAL BLOOD HCO3 18.5 mmol/L (20-26); ARTERIAL BLOOD O2 SATURATION 96.2 % (94-98); ARTERIAL BLOOD PCO2 40.9 mmHg (35-45); ARTERIAL BLOOD PH 7.27 (7.35-7.45); ARTERIAL BLOOD PO2 93.5 mmHg (80-100); ARTERIAL BLOOD TOTAL CO2 19.8 mmol/L (23-27)
[2017-03-14 11:53] LABS: ARTERIAL BLOOD FIO2 80%
[2017-03-14 12:32] VITALS: BP 103/60
[2017-03-14] MEDS ORDERED: CEFEPIME HCL 2 GM in DEXTROSE 5%-WATER 50 ML IV SCH (18:00)
--- NOTE | 2017-03-14 18:22 | XCELERA REPORT ---
[address] [address] Transthoracic Echocardiogram Report Name: MICHAEL OVIEDO II Age: 51 yrs Gender: Male : 1965 Patient Status: Inpatient Patient Location: ICU^603^A Study Date: 03/14/2017 08:40 AM Height: 71 in Weight: 242 lb BSA: 2.3 m2 Procedure: A complete two-dimensional transthoracic echocardiogram was performed (2D, M-mode, spectral and color flow Doppler). The study was technically difficult with many images being suboptimal in quality. The study was technically limited with all images being suboptimal in quality. Reason For Study: chest pain Ordering Physician: SUMAN CHAN Performed By: Marilyn Good Interpretation Summary The study was technically difficult with many images being suboptimal in quality. Left ventricular systolic function is borderline reduced. Doppler measurements suggest pseudonormalized left ventricular relaxation, which is associated with grade II/IV or mild to moderate diastolic dysfunction There is borderline concentric left ventricular hypertrophy. The left ventricle is grossly normal size. Regional wall motion abnormalities cannot be excluded due to limited visualization. The right ventricle is borderline dilated. The right atrium is normal. The left atrial size is normal. There is no mitral valve stenosis. There is a trace amount of mitral regurgitation There is no aortic valve stenosis No aortic regurgitation is present. There is a trace to mild amount of tricuspid regurgitation There is mild pulmonary hypertension by echo Right ventricular systolic pressure is estimated to be elevated at 30- 40mmHg. The aortic root is not well visualized. The inferior vena cava was not visualized Minimal pericardial effusion. MMode/2D Measurements & Calculations RVDd: 3.4 cm LVIDd: 5.9 cm FS: 34.7 % Ao root diam: 3.5 cm IVSd: 1.0 cm LVIDs: 3.9 cm EDV(Teich): 174.1 ml LVPWd: 1.00 cmESV(Teich): 64.4 ml Ao root area: 9.6 cm2 EF(Teich): 63.0 % LA dimension: 3.3 cm LVOT diam: 2.5 cm LVOT area: 5.0 cm2 Doppler Measurements & Calculations MV E max cyrus: MV P1/2t max cyrus: Ao V2 max: LV V1 max P.3 cm/sec 88.8 cm/sec 120.1 cm/sec 3.9 mmHg MV A max cyrus: MV P1/2t: 38.2 msec Ao max PG: LV V1 max: 60.7 cm/sec MVA(P1/2t): 5.8 cm2 5.8 mmHg 98.7 cm/sec MV E/A: 1.5 MV dec slope: OLEG(V,D): 4.1 cm2 681.4 cm/sec2 PA V2 max: TR max cyrus: 111.1 cm/sec 293.2 cm/sec PA max PG: TR max P.4 mmHg 4.9 mmHg Left Ventricle The left ventricle is grossly normal size. There is borderline concentric left ventricular hypertrophy. Left ventricular systolic function is borderline reduced. Doppler measurements suggest pseudonormalized left ventricular relaxation, which is associated with grade II/IV or mild to moderate diastolic dysfunction. Regional wall motion abnormalities cannot be excluded due to limited visualization. Right Ventricle The right ventricle is borderline dilated. The right ventricular systolic function is normal. Atria The right atrium is normal. The left atrial size is normal. Interarterial septum not well visualized and not well dopplered. Cannot comment on ASD/PFO presence. Mitral Valve The mitral valve is grossly normal. There is no mitral valve stenosis. There is a trace amount of mitral regurgitation. Aortic Valve The aortic valve is not well visualized secondary to technical limitations. There is no aortic valve stenosis. No aortic regurgitation is present. Tricuspid Valve The tricuspid valve is not well visualized secondary to technical limitations. There is no tricuspid stenosis. There is a trace to mild amount of tricuspid regurgitation. There is mild pulmonary hypertension by echo. Right ventricular systolic pressure is estimated to be elevated at 30-40mmHg. Pulmonic Valve The pulmonic valve is not well visualized. Great Vessels The aortic root is not well visualized. The inferior vena cava was not visualized. Effusions Minimal pericardial effusion. : SUMAN CHAN > Leatha Jimenez
--- NOTE | 2017-03-17 10:35 | EKG REPORT ---
SEVERITY:- ABNORMAL ECG - SINUS TACHYCARDIA PROBABLE LEFT ATRIAL ABNORMALITY CONSIDER ANTEROSEPTAL INFARCT BORDERLINE T WAVE ABNORMALITIES : Confirmed on behalf of: Javon Welch MD 17-Mar-2017 10:35:17
--- NOTE | 2017-03-17 12:58 | EKG REPORT ---
SEVERITY:- ABNORMAL ECG - SINUS TACHYCARDIA LEFT ATRIAL ABNORMALITY CONSIDER ANTEROSEPTAL INFARCT BORDERLINE T WAVE ABNORMALITIES : Confirmed by: Javon Welch MD 17-Mar-2017 12:57:57
== END 2017-03-14 12:58 | disposition short-term general hospital (02) | DRG 208 ==
LOC: ER 08:19 → EH 10:46 → OBSVTOIN 11:51 → ICU 20:18
PROVIDERS: ADMIT Emergency Medicine; ATTEND Emergency Medicine
PROC: 0BH17EZ Insertion of Endotracheal Airway into Trachea, Via Natural or Artificial Opening (ICD-10-PCS; principal; 2017-03-12)
PROC: 5A1945Z Respiratory Ventilation, 24-96 Consecutive Hours (ICD-10-PCS; 2017-03-12)
DX: J80 Acute respiratory distress syndrome (principal); A41.9 Sepsis, unspecified organism; J18.9 Pneumonia, unspecified organism; R65.21 Severe sepsis with septic shock; N17.9 Acute kidney failure, unspecified; E87.1 Hypo-osmolality and hyponatremia; J44.1 Chronic obstructive pulmonary disease with (acute) exacerbation; J44.0 Chronic obstructive pulmonary disease with (acute) lower respiratory infection; E86.0 Dehydration; E78.1 Pure hyperglyceridemia; D69.6 Thrombocytopenia, unspecified; M17.12 Unilateral primary osteoarthritis, left knee; F17.200 Nicotine dependence, unspecified, uncomplicated
CPT/HCPCS: 36415; 36600; 51702; 71045; 71275; 80048; 80053; 80061; 81001; 82271; 82803; 83036; 83605; 83735; 84439; 84443; 84478; 84484; 85025; 85610; 86603; 87040; 87086; 87205; 87804; 93005; 93010; 93306; 94002; 94003; 94660; 96361; 96365; 96367; 96375; 96376; 99291; J0456; J0692; J0696; J1956; J2060; J2250; J2543; J2704; J2930; J3360; J3490; J7030; J7040; J7620; S0164